=== PATIENT | male | born 1955 | race Caucasian/White ===

== ENCOUNTER → 2023-05-07 | Outpatient (CLI) | payer MEDICARE, OTHER ==
[2023-05-07 09:26] LABS: African American GFR (CKD) >90 (>60 ml/min/1.73 sqM); Blood Urea Nitrogen 19 mg/dL (9-20); Non-African American GFR(CKD) 89 (>60 ml/min/1.73 sqM)
--- NOTE | 2023-05-07 11:34 | CT ---
EXAMINATION TYPE: CT abdomen pelvis w con CT DLP: 582.5 mGycm, Automated exposure control for dose reduction was used. DATE OF EXAM: 05/07/2023 10:18 AM COMPARISON: None CLINICAL INDICATION:Male, 67 years old with history of C61 malignant neoplasm of prostate; Prostate C A TECHNIQUE: Standard CT of the abdomen and pelvis following the administration of 100 cc of Isovue 3 00 IV contrast material and oral contrast. Coronal and sagittal reformats were performed. FINDINGS: LOWER CHEST: Unremarkable ABDOMEN LIVER: Few scattered subcentimeter hypodense foci which are too small to characterize with a right he patic lobe 3.9 cm cyst. GALLBLADDER AND BILE DUCTS: Unremarkable. PANCREAS: Unremarkable. SPLEEN: Unremarkable. ADRENAL GLANDS: Unremarkable. KIDNEYS AND URETERS: No evidence of hydronephrosis or renal calculus. The kidneys enhance symmetrical ly without suspicious lesion. Contrast is demonstrated within both collecting systems on the delayed phase. PELVIS BLADDER: Unremarkable REPRODUCTIVE: Prostate measuring up to 5.3 cm with medial lobe hypertrophy and indentation upon the u rinary bladder base. ABDOMEN & PELVIS STOMACH AND BOWEL: Small hiatal hernia, duodenum is unremarkable. The colonic diverticulosis without evidence for acute diverticulitis. Mild amount of stool present throughout the colon. Enteric contras t reaches the ileocecal junction. No evidence of bowel obstruction. PERITONEUM: No evidence of pneumoperitoneum or free fluid. VASCULATURE: Infrarenal abdominal aortic fusiform aneurysm measuring up to 3.0 cm (series 3, image 33 ). Mild atherosclerotic calcification of the aorta and its branches. Mild eccentric mural thrombus in the aneurysm. MUSCULOSKELETAL: No acute osseous abnormalities. No aggressive osseous lesion. Prominent Schmorl's no de involving the inferior endplate of L1. LYMPH NODES: No evidence for lymphadenopathy. SOFT TISSUE/ABDOMINAL WALL: Small fat filled umbilical hernia. Post surgical changes from right ingui nal hernia repair. IMPRESSION: 1. No CT evidence for metastatic disease. 2. Colonic diverticulosis without evidence for acute diverticulitis. 3. Infrarenal abdominal aortic aneurysm measuring up to 3.0 cm.
--- NOTE | 2023-05-07 14:13 | NM ---
EXAMINATION TYPE: NM bone scan whole body DATE OF EXAM: 05/07/2023 COMPARISON: NONE CLINICAL INDICATION: Male, 67 years old with history of C61 malignant neoplasm of prostate; Delayed whole-body scanning was performed following the injection of 21.5 mCi Tc 99m MDP. Images acq uired 4.5 hours post injection. FINDINGS: Nonspecific uptake involving the sternoclavicular joint bilaterally likely postoperative. Nonspecific uptake bilateral shoulders likely postoperative related. Mild intensity uptake throughout the thoracic and lumbar spine nonspecific but likely degenerative IMPRESSION: No diagnostic evidence of metastasis.
== END | disposition home or self-care (01) ==
LOC: RADCTMAIN 08:24
PROVIDERS: ATTEND Urology
DX: C61 Malignant neoplasm of prostate (principal); K57.30 Diverticulosis of large intestine without perforation or abscess without bleeding; I71.43 Infrarenal abdominal aortic aneurysm, without rupture
CPT/HCPCS: 82565; 84520; 74177; 36415; 78306; A9503; Q9967

== ENCOUNTER → 2023-07-09 | Outpatient (CLI) | payer MEDICARE, OTHER ==
[2023-07-09 16:56] LABS: Basophils # (A) 0.09 X 10*3/uL (0.00-0.10); Basophils % (A) 0.9 %; Eosinophils # (A) 0.18 X 10*3/uL (0.04-0.35); Eosinophils % (A) 1.8 %; HCT 45.8 % (39.6-50.0); Lymphocytes # (A) 2.83 X 10*3/uL (0.90-5.00); Lymphocytes % (A) 27.6 %; MCH 31.8 pg (27.0-32.0); MCHC 32.8 d/dL (32.0-37.0); MCV 97.2 FL (80.0-97.0); Mean Platelet Volume 9.4 FL (9.5-12.2); Monocytes # (A) 1.24 X 10*3/uL (0.20-1.00); Monocytes % (A) 12.1 %; NRBC Per 100 WBC 0 X 10*3/uL (0.00-0.01); Neutrophils % (A) 56.6 %; Platelet Count 277 X 10*3/uL (140-440); RBC 4.71 X 10*6/uL (4.40-5.60); RDW 13.4 % (11.5-14.5); WBC 10.24 X 10*3/uL (4.50-10.00)
[2023-07-09 17:12] LABS: Blood Urea Nitrogen 15.7 mg/dL (9.0-27.0); Calcium 8.5 mg/dL (8.7-10.3); Carbon Dioxide 29.7 mmol/L (21.6-31.8); Chloride 102 mmol/L (96-109); Glucose 87 mg/dL (70-110); Potassium 4.1 mmol/L (3.5-5.5); Sodium 139 mmol/L (135-145)
[2023-07-09 19:32] LABS: Appearance,Urine Clear (Clear); Bilirubin,Urine Negative (Negative); Blood,Urine Negative (Negative); Color,Urine Yellow (Yellow); Ketones,Urine Negative (Negative); Nitrite,Urine Negative (Negative); Specific Gravity,Urine 1.018 (1.001-1.030)
== END | disposition home or self-care (01) ==
LOC: LABPAT 10:05
PROVIDERS: ATTEND Urology
DX: Z01.812 Encounter for preprocedural laboratory examination (principal); C61 Malignant neoplasm of prostate
CPT/HCPCS: 80048; 81003; 85025; 87086

== ENCOUNTER 2023-07-16 10:11 | Day surgery (SDC) | payer MEDICARE, OTHER ==
[2023-07-08 09:48] VITALS: BMI 23.0
--- NOTE | 2023-07-16 07:54 | P.HPIHPCON ---
History of Present Illness H&P Date: 07/16/23 Chief Complaint: Prostate cancer This is a 67-year-old male with history of [place] 7(3+4) prostate cancer. Option of a robotic radical prostatectomy versus radiation therapy was discussed with him in detail. Risk and benefit of each approach was discussed. He agreed to proceed with a robotic radical prostatectomy aware of the risk which includes but not limited to bleeding, infection, urinary incontinence, erectile dysfunction, strictures. Discussed also potential of needing additional treatment, cancer recurrence and need of surveillance post operatively was discussed. Risk of injury to nearby organs which was discussed. Discussed also risks of medical complications. He understood all the risk and agreed to proceed with robotic radical prostatectomy with pelvic lymph node dissection Consent for Procedure: I have explained the operation/procedure to the patient, including the risks, benefits, side effects, alternative therapies (including not receiving the proposed treatment or service), the likelihood of the patient achieving his/her goals, and potential recuperation problems for the procedure/sedation/analgesia, as well as any blood products, if indicated. I also explained to the patient the risks, benefits and side effects of the alternatives, as well as the risks related to not receiving the proposed procedure, care, treatment, or services. Past Medical History Past Medical History: Cancer, Myocardial Infarction (ND), Osteoarthritis (OA) Additional Past Medical History / Comment(s): Recent respiratory infection, finished Steroid and Z-Pack 07/07/23, patient following up with Dr Harris 07/09/23. Current prostate cancer. Was told he had a minor ND about 25 yrs ago, pt didn't know it occured. Last Myocardial Infarction Date:: Unknown History of Any Multi-Drug Resistant Organisms: None Reported Past Surgical History: Back Surgery, Hernia Repair Additional Past Surgical History / Comment(s): Left hand little finger surgery. Lumbar discectomy(2 discs) 25+ yrs ago. Past Anesthesia/Blood Transfusion Reactions: Motion Sickness Past Psychological History: No Psychological Hx Reported Smoking Status: Current every day smoker Past Alcohol Use History: Rare Additional Past Alcohol Use History / Comment(s): Currently smokes 5-6 cigarettes daily, started smoking at age 15, has quit quite a few times over the years. Past Drug Use History: Marijuana Additional Drug Use History / Comment(s): THC gummies occasionally. Aware no use 24 hrs prior to procedure. - Past Family History Daughter(s) Family Medical History: Cancer Additional Family Medical History / Comment(s): Breast cancer. Medications and Allergies Home Medications Medication Instructions Recorded Confirmed Type Aspirin [Adult Low Dose Aspirin EC] 81 mg PO DAILY 07/08/23 07/08/23 History Cetirizine HCl [Zyrtec] 10 mg PO DAILY 07/08/23 07/08/23 History Famotidine/Ca Carb/Mag Hydrox 1 tab PO HS 07/08/23 07/08/23 History [Pepcid Complete Tablet Chew] Simvastatin 40 mg PO DAILY 07/08/23 07/08/23 History carvediloL [Coreg] 3.125 mg PO BID 07/08/23 07/08/23 History Allergies Allergy/AdvReac Type Severity Reaction Status Date / Time No Known Allergies Allergy Verified 07/08/23 09:13 Surgical - Exam - General no distress, no pain - Eyes normal ocular movement, no pale - ENT normal nares, normal mucosa - Respiratory normal expansion, normal respiratory effort - Abdomen Abdomen: soft, non tender Assessment and Plan Assessment: OR for robotic radical prostatectomy with pelvic lymph node dissection
[~2023-07-16 10:11] MED LIST: HEPARIN SODIUM,PORCINE/PF 5,000 UNIT/0.5 ML SYRINGE SQ PRN
[2023-07-16] MEDS: ONDANSETRON 4 MG/2 ML VIAL IVP ONE ×2 (11:30→11:52)
[2023-07-16] MEDS: DEXAMETHASONE SOD PHOSPHATE 4 MG/ML 1 ML VIAL IV ONE ×2 (11:30→11:52)
[2023-07-16] MEDS ORDERED: ONDANSETRON 4 MG/2 ML VIAL IVP PRN (11:37)
[2023-07-16] MEDS ORDERED: MIDAZOLAM 2 MG/2 ML VIAL IVP ONE (11:39)
[2023-07-16] MEDS: LACTATED RINGERS 1,000 ML IV SCH (11:51)
[2023-07-16] MEDS ORDERED: ROCURONIUM 10 MG/ML (5 ML VIAL) IV ONE (12:08)
[2023-07-16] MEDS ORDERED: fentaNYL (PF) 50 MCG/ML 2 ML AMP ONE (12:08)
[2023-07-16] MEDS ORDERED: ROPIVACAINE 5 MG/ML 30 ML VIAL ONE (12:08)
[2023-07-16] MEDS ORDERED: HYDROmorphone (PF) 1 MG/ML ONE (12:08)
[2023-07-16] MEDS ORDERED: SUCCINYLCHOLINE CHLORIDE 200 MG/10 ML VIAL IV ONE (12:08)
[2023-07-16] MEDS ORDERED: NEOSTIGMINE 1 MG/ML 10 ML VIAL ONE (12:08)
[2023-07-16] MEDS ORDERED: PHENYLEPHRINE-0.9% NACL SYG 1,000 MCG/10 ML SYRINGE ONE (12:08)
[2023-07-16] MEDS ORDERED: SODIUM CHLORIDE 0.9% (PF) 10 ML VIAL ONE (12:08)
[2023-07-16] MEDS ORDERED: PROPOFOL 10 MG/ML 20 ML VIAL IV ONE (12:08)
[2023-07-16] MEDS ORDERED: LIDOCAINE 2% INJ 20 MG/ML (2 ML VIAL) ONE (12:08)
[2023-07-16] MEDS ORDERED: GLYCOPYRROLATE 0.2 MG/ML 2 ML VIAL ONE (12:08)
[2023-07-16] MEDS ORDERED: BUPIVACAINE (PF) 0.5% 30 ML VIAL SQ ONE (12:58)
[2023-07-16] MEDS ORDERED: GENTAMICIN 40 MG/ML 2 ML VIAL ONE (13:48)
[2023-07-16] MEDS ORDERED: SODIUM CHLORIDE 0.9% 100 ML BAG ONE (13:48)
--- NOTE | 2023-07-16 15:33 | P.OP ---
Date of Procedure: 07/16/23 Preoperative Diagnosis: Prostate cancer Postoperative Diagnosis: same Procedure(s) Performed: Robotic radical prostatectomy, and left-sided pelvic lymph node dissection Implants: None Anesthesia: THERESEA Surgeon: Alberto Harris Estimated Blood Loss (ml): 150 Pathology: other (Prostate, bilateral seminal vesicle, left pelvic lymph nodes) Condition: stable Disposition: PACU Indications for Procedure: This is a 67-year-old male with history of [place] 7(3+4) prostate cancer. Option of a robotic radical prostatectomy versus radiation therapy was discussed with him in detail. Risk and benefit of each approach was discussed. He agreed to proceed with a robotic radical prostatectomy aware of the risk which includes but not limited to bleeding, infection, urinary incontinence, erectile dysfunction, strictures. Discussed also potential of needing additional treatment, cancer recurrence and need of surveillance post operatively was discussed. Risk of injury to nearby organs which was discussed. Discussed also risks of medical complications. He understood all the risk and agreed to proceed with robotic radical prostatectomy with pelvic lymph node dissection Description of Procedure: After preoperative antibiotics were started, the patient was taken to the operating room. Anesthesia was induced and the patient was placed in a supine position, with adequate padding of the pressure points, shoulders, back, legs and arms. He was then prepped and draped in the standard fashion. A critical pause was performed using two patient identifiers. A 16F edmondson catheter was placed to gravity drainage. A pneumo-peritoneum was created with placement of a Veress needle to 20 mm Hg without complication, and a 8 Fr trocar was placed above the umbillicus. Under direct vision a 8mm robotic ports was placed lateral to each rectus slightly below the camera port. The left iliac fossa 8mm port was placed. The right hospital administrative assistant right iliac fossa 12mm port and right paramedian 5mm portwere placed. After the patient was placed in the trendelenberg position, the robot was then docked to the 8mm robotic ports and then each robotic arm and tower was checked in relation to the patient's legs and hands to avoid inadvertent compression. The peritoneal cavity was inspected. Patient had adhesions along the right lower quadrant which were taken down sharply An inverted U-shaped incision began laterally to the left medial umbilical ligament and extended high across the midline to the right umbilical ligament. The limbs of the "U" extended to the level of the vasa on both sides. We next developed the preperitoneal space and the space of Retzius. Of note patient had scarring of the space of Retzius, as the bladder was adherent to the pubic bone, and along the right side pelvic sidewall. I was able to mobilize the bladder off the pubic bone using cautery. After mobilizing the bladder the bladder was filled with 120 mL which showed no evidence of any bladder leaks. Cautery was used to dissected the bladder away from the prostate. After the anterior bladder neck was incised and the bladder entered the the posterior bladder neck was exposed and the ureteral orifces identified. Of note patient had a significant enlargement of the median lobe with intravesical extension The posterior bladder neck was then incised and dissected away from the prostate. The vas and the seminal vesicles were now exposed and dissected to their insertions into the prostate and were not spared. The posterior layer of the Denonvillier's fascia was incised to enter luis a the plane between prostate and perirectal fat. Each lateral pedicle was controlled with clips and cautery for hemostasis. Complete nerve preservation was performed on the left, partial nerve preservation was performed on the right The puboprostatic ligament was incised where it inserted into the apex of the prostate and a plane between urethra and dorsal venous complex developed to expose the anterior urethral surface. The anterior wall of the urethra was transected with the cut setting a few millimeters distal to the apex of the prostate. The dorsal vein was ligated using 3-0 V lock Patient had mesh covering the iliac vessels on the peritoneal side, I attempted to develop the plane in order to the right sided pelvic lymph node but there was significant scarring, given risk for vascular injury decision was made not to proceed with right-sided pelvic lymph node. left obturator and external iliac lymph node packets were carefully dissected after careful visualization of the hypogastric artery and obturator nerve. There was careful attention paid to hemostasis with judicious use of cautery. The urethrovesical anastomosis was performed . the posterior denovillers was reapproximated using 3-0 V lock. A9 and9 inch 3-0 V-Lock suture was used to anastomose the urethra and bladder, starting at the 6:00 posterior position. Mucosa was secured in every stitch, to ensure a mucosa to mucosa anastomosis. The stitch was regularly cinched and the anastomosis tightened. Care was taken to not violate the ureteral orifices. The Edmondson catheter was advanced, the bladder filled, and the anastomosis was tested, as described above. Anastomsis was watertight at 200 mL The periumbilical fascia was closed with 1-0-PDS suture in figure of eight fashion. All ports were closed with a subcuticular 4-0 monocryl and Dermabond. Sponge, instrument, and needle counts were correct at the end of the case x2. All specimens including prostate and lymph nodes were sent to pathology for diagnosis and will be available in a week. The patient tolerated the surgery well and without complication. He awoke without difficulty and was taken to the recovery room in stable condition .
[2023-07-16] MEDS ORDERED: LACTATED RINGERS 1,000 ML IV ONE (15:44)
[2023-07-16] MEDS: D5-0.45% NACL WITH KCL 20MEQ/L 1,000 ML IV SCH (18:29)
[2023-07-16] MEDS: KETOROLAC 15 MG/ML 1 ML VIAL IVP SCH ×2 (18:47→22:54)
[2023-07-16] MEDS: carvediloL 3.125 MG TAB PO SCH (18:48)
[2023-07-16] MEDS: HEPARIN SODIUM,PORCINE 5,000 UNIT/ML 1 ML VIAL SQ SCH (20:24)
[2023-07-16] MEDS ORDERED: FAMOTIDINE 20 MG TAB PO SCH (21:00)
[2023-07-17] MEDS: HYDROmorphone 1 MG/ML 1 ML SYRINGE IVP PRN ×2 (00:23→07:50)
[2023-07-17] MEDS: D5-0.45% NACL WITH KCL 20MEQ/L 1,000 ML IV SCH ×2 (00:24→09:31)
[2023-07-17] MEDS: HEPARIN SODIUM,PORCINE 5,000 UNIT/ML 1 ML VIAL SQ SCH ×2 (05:33→12:01)
[2023-07-17] MEDS: KETOROLAC 15 MG/ML 1 ML VIAL IVP SCH ×2 (06:14→12:01)
[2023-07-17] MEDS: LACTATED RINGERS 1,000 ML IV SCH (06:16)
[2023-07-17 07:43] VITALS: BP 96/55; PULSE 63; TEMP 98.3
[2023-07-17] MEDS: carvediloL 3.125 MG TAB PO SCH (08:40)
[2023-07-17] MEDS ORDERED: LORATADINE 10 MG TAB PO SCH (09:00)
[2023-07-17] MEDS ORDERED: ATORVASTATIN 20 MG TAB PO SCH (09:00)
[2023-07-17 10:52] VITALS: RESP 20
--- NOTE | 2023-07-17 11:49 | P.DS ---
Providers Attending physician: Alberto Harris MD Primary care physician: Stated None Hospital Course: This is a 67 yo male with hx of karen 7 (3+4) prostate cancer underwent robotic prostatecomy on 07/16. Please see op note dated 07/16 for surgery details. He was admitted to the hospital post operatively. He was discharged home on POD #1. at time of discharge he was tolerating diet, ambulating and pain was controlled. Plan - Discharge Summary Discharge Rx Participant: Yes New Discharge Prescriptions: New Ciprofloxacin HCl [Cipro] 250 mg PO Q12HR #6 tablet HYDROcodone/APAP 5-325MG [[place] 5-325] 1 tab PO Q6HR PRN 3 Days #6 tab PRN Reason: Pain Ketorolac [Toradol] 10 mg PO Q6HR PRN #15 tab PRN Reason: Pain No Action Simvastatin 40 mg PO DAILY Aspirin [Adult Low Dose Aspirin EC] 81 mg PO DAILY Cetirizine HCl [Zyrtec] 10 mg PO DAILY carvediloL [Coreg] 3.125 mg PO BID Famotidine/Ca Carb/Mag Hydrox [Pepcid Complete Tablet Chew] 1 tab PO HS Discharge Medication List Aspirin [Adult Low Dose Aspirin EC] 81 mg PO DAILY 07/08/23 [History] Cetirizine HCl [Zyrtec] 10 mg PO DAILY 07/08/23 [History] Famotidine/Ca Carb/Mag Hydrox [Pepcid Complete Tablet Chew] 1 tab PO HS 07/08/23 [History] Simvastatin 40 mg PO DAILY 07/08/23 [History] carvediloL [Coreg] 3.125 mg PO BID 07/08/23 [History] Ciprofloxacin HCl [Cipro] 250 mg PO Q12HR #6 tablet 07/17/23 [Rx] HYDROcodone/APAP 5-325MG [[place] 5-325] 1 tab PO Q6HR PRN 3 Days #6 tab 07/17/23 [Rx] Ketorolac [Toradol] 10 mg PO Q6HR PRN #15 tab 07/17/23 [Rx] Activity/Diet/Wound Care/Special Instructions: Increase fluid intake No heavy lifting or straining You may shower, no baths
== END 2023-07-17 14:25 | disposition home or self-care (01) ==
LOC: OR 10:11 → 4SSUR 15:35 → OR 07-17 14:25
PROVIDERS: ATTEND Urology
DX: C61 Malignant neoplasm of prostate (principal); I25.2 Old myocardial infarction; M19.90 Unspecified osteoarthritis, unspecified site; F17.210 Nicotine dependence, cigarettes, uncomplicated; F12.90 Cannabis use, unspecified, uncomplicated; Z80.3 Family history of malignant neoplasm of breast; Z98.890 Other specified postprocedural states; Z79.899 Other long term (current) drug therapy; Z79.82 Long term (current) use of aspirin
CPT/HCPCS: 64488; 86900; 86901; 86850; 55866; 38570; J2250; J0330; J1580; J1644 ×2; J1100; J2710; J0690; J2405; J3010; J1170 ×2; J2795; J1885 ×2; J2704; J2001; J2371; J0665

== ENCOUNTER 2023-07-18 05:30 | Inpatient (IN) | payer MEDICARE, OTHER ==
[2023-07-18] MEDS ORDERED: SODIUM CHLORIDE 0.9% 1,000 ML IV STA (06:14)
[2023-07-18] MEDS ORDERED: PANTOPRAZOLE 40 MG/10 ML VIAL IVP STA (06:14)
[2023-07-18] MEDS ORDERED: ONDANSETRON 4 MG/2 ML VIAL IVP STA (06:14)
[2023-07-18] MEDS ORDERED: MORPHINE SULFATE 2 MG/ML SYRINGE IVP STA (06:15)
[2023-07-18 06:23] LABS: Basophils % (A) 0 %; Eosinophils # (A) 0.1 k/uL (0-0.7); Eosinophils % (A) 1 %; HCT 43.4 % (39.0-53.0); HGB 14.8 gm/dL (13.0-17.5); Lymphocytes # (A) 1.4 k/uL (1.0-4.8); Lymphocytes % (A) 9 %; MCH 32.3 pg (25.0-35.0); MCHC 34.2 g/dL (31.0-37.0); MCV 94.4 fL (80.0-100.0); Mean Platelet Volume 7.6; Monocytes % (A) 6 %; Neutrophils # (A) 13.9 k/uL (1.3-7.7); Neutrophils % (A) 84 %; Platelet Count 289 k/uL (150-450); RDW 12.5 % (11.5-15.5); WBC 16.5 k/uL (3.8-10.6)
--- NOTE | 2023-07-18 06:23 | ED ---
Nausea/Vomiting/Diarrhea HPI - General Chief complaint: Nausea/Vomiting/Diarrhea Stated complaint: Vomiting blood, post op complications Time Seen by Provider: 07/18/23 05:59 Source: patient, RN notes reviewed Mode of arrival: wheelchair Limitations: no limitations - History of Present Illness Initial comments: This is a 67-year-old male who presents to the emergency department for abdominal pain, nausea, and vomiting. Patient had a total robotic prostatectomy for prostate cancer with Dr. Harris 2 days ago. He was discharged from the hospital here yesterday. States that since being home, he has had increasing pain in the abdomen, and back, and has also started vomiting, which at times seemed to contain blood. He had thrown up a couple of times before noticing the blood in his vomit. States that it was essentially just streaking of bright red blood. He is not taking any blood thinners. Denies any fevers, chills, sore throat, cough, dyspnea, chest pain, palpitations, diarrhea, or headaches. MD complaint: nausea, vomiting - Related Data Home Medications Medication Instructions Recorded Confirmed Aspirin [Adult Low Dose Aspirin EC] 81 mg PO DAILY 07/08/23 07/18/23 Cetirizine HCl [Zyrtec] 10 mg PO DAILY 07/08/23 07/18/23 Famotidine/Ca Carb/Mag Hydrox 1 tab PO HS 07/08/23 07/18/23 [Pepcid Complete Tablet Chew] Simvastatin 40 mg PO DAILY 07/08/23 07/18/23 carvediloL [Coreg] 3.125 mg PO BID 07/08/23 07/18/23 Previous Rx's Medication Instructions Recorded Ciprofloxacin HCl [Cipro] 250 mg PO Q12HR #6 tablet 07/17/23 HYDROcodone/APAP 5-325MG [[place] 1 tab PO Q6HR PRN 3 Days #6 tab 07/17/23 5-325] Ketorolac [Toradol] 10 mg PO Q6HR PRN #15 tab 07/17/23 Allergies Allergy/AdvReac Type Severity Reaction Status Date / Time No Known Allergies Allergy Verified 07/16/23 10:42 Review of Systems ROS Statement: Those systems with pertinent positive or pertinent negative responses have been documented in the HPI. ROS Other: All systems not noted in ROS Statement are negative. Past Medical History Past Medical History: Cancer, Myocardial Infarction ([place]), Osteoarthritis (OA), Prostate Disorder Additional Past Medical History / Comment(s): Recent respiratory infection, finished Steroid and Z-Pack 07/07/23, patient following up with Dr Harris 07/09/23. Current prostate cancer. Was told he had a minor [place] about 25 yrs ago, pt didn't know it occured. Last Myocardial Infarction Date:: Unknown History of Any Multi-Drug Resistant Organisms: None Reported Past Surgical History: Back Surgery, Hernia Repair Additional Past Surgical History / Comment(s): Left hand little finger surgery. Lumbar discectomy(2 discs) 25+ yrs ago. Past Anesthesia/Blood Transfusion Reactions: Motion Sickness Past Psychological History: No Psychological Hx Reported Smoking Status: Current every day smoker Past Alcohol Use History: Rare Past Drug Use History: Marijuana - Past Family History Daughter(s) Family Medical History: Cancer Additional Family Medical History / Comment(s): Breast cancer. General Exam Limitations: no limitations General appearance: alert, in no apparent distress Head exam: Present: atraumatic, normocephalic, normal inspection Respiratory exam: Present: normal lung sounds bilaterally. Absent: respiratory distress, wheezes, rales, rhonchi, stridor Cardiovascular Exam: Present: regular rate, normal rhythm, normal heart sounds. Absent: systolic murmur, diastolic murmur, rubs, gallop, clicks GI/Abdominal exam: Present: soft, normal bowel sounds, other (Operative incisions are intact. No surrounding erythema, drainage, or heat.). Absent: distended Neurological exam: Present: alert, oriented X3, CN II-XII intact Psychiatric exam: Present: normal affect, normal mood Skin exam: Present: warm, dry, intact, normal color. Absent: rash Course Vital Signs 07/18/23 07/18/23 07/18/23 05:32 07:00 07:27 Temperature 98.6 F Pulse Rate 81 110 H 120 H Pulse Rate [ Skate Hop ] Respiratory 16 18 20 Rate Blood Pressure 152/85 143/93 132/91 O2 Sat by Pulse 96 97 92 L Oximetry 07/18/23 07/18/23 07:32 08:00 Temperature Pulse Rate 104 H Pulse Rate [ 110 H Skate Hop ] Respiratory 20 Rate Blood Pressure 132/90 O2 Sat by Pulse 97 Oximetry Medical Decision Making - Medical Decision Making This is a 67-year-old male who presents to the emergency department for abdominal pain, nausea, vomiting. Was pt. sent in by a medical professional or institution? @ -No Did you speak to anyone other than the patient for history? @ -No Did you review nursing and triage notes? @ -Yes, and I agree, it is accurate with regards to the patient's symptoms. Were old charts reviewed? @ -No Differential Diagnosis? @ -Differential Abdominal Pain Men: Appendicitis, cholecystitis, diverticulosis, ischemic bowel, pancreatitis, hepatitis, UTI, gastroenteritis, AAA, incarcerated hernia, bowel obstruction, constipation, inflammatory bowel, hepatitis, peptic ulcer disease, splenic infarction, perforated viscus, testicular torsion, this is not meant to be an all-inclusive list EKG interpreted by me (3pts min.)? @ -EKG interpreted by me revealing the following: Atrial fibrillation with rapid ventricular response. Ventricular rate 101 bpm, QRS duration 91 ms, QTC 382 ms. X-rays interpreted by me (1pt min.)? @ -Not obtained CT interpreted by me (1pt min.)? @ -Computed tomography scan of the abdomen and pelvis obtained. My interpretation identifies no evidence of bowel wall thickening. U/S interpreted by me (1pt. min.)? @ -Not obtained What testing was considered but not performed? (CT, X-rays, U/S, labs)? Why? @ -None What meds were considered but not given? Why? @ -None Did you discuss the management of the patient with other professionals? @ -Yes, Dr. Mlelo, who accepts the patient for admission. Did you reconcile home meds? @ -No Was smoking cessation discussed for >3mins.? @ -No Was critical care preformed (if so, how long)? @ -No Were there social determinants of health that impacted care today? How? (Homelessness, low income, unemployed, alcoholism, drug addiction, transportation, low edu. Level, literacy, decrease access to med. care, correction, rehab)? @ -No Was there de-escalation of care discussed even if they declined? (Discuss DNR or withdrawal of care, Hospice)? @ -No What co-morbidities impacted this encounter? (DM, HTN, Smoking, COPD, CAD, Cancer, CVA, Hep., AIDS, mental health diagnosis, sleep apnea, morbid obesity)? @ -Prostate cancer Was patient admitted / discharged? @ -Admitted. Lab work obtained revealing leukocytosis, and was otherwise nonactionable. Computed tomography scan of the abdomen and pelvis obtained revealing expected postsurgical changes, including moderate pneumoperitoneum, pneumomediastinum, and subcutaneous emphysema. After being given Zofran, the patient did not experience any episodes of emesis while in the emergency de partment. He was given a dose of Protonix due to concerns of blood streaking in the vomit. When the patient was hooked up to the monitor, his nurse noticed that his heart rate was fluctuating from the 80s to the 120s, and subsequently obtained an EKG revealing atrial fibrillation with RVR. Patient has no history of atrial fibrillation or other cardiac problems. Not taking any blood thinners. We avoided starting the patient on blood thinners at this time, as he is in the acute postoperative phase and had reported some blood in his vomit. Patient admitted to medicine for new onset atrial fibrillation and postoperative pain. Consults placed for cardiology and urology. Undiagnosed new problem with uncertain prognosis? @ -None Drug Therapy requiring intensive monitoring for toxicity (Heparin, Nitro, Insulin, Cardizem)? @ -None Were any procedures done? @ -None Diagnosis/symptom? @ -A-fib with RVR, postoperative pain Acute, or Chronic, or Acute on Chronic? @ -Acute Uncomplicated (without systemic symptoms) or Complicated (systemic symptoms)? @ -Complicated Side effects of treatment? @ -None Exacerbation, Progression, or Severe Exacerbation] @ -Not applicable Poses a threat to life or bodily function? @ -Yes This case was discussed in detail with the attending ED physician, Dr. Craven. Presentation, findings, and treatment plan discussed in detail as well. - Lab Data Result diagrams: 07/18/23 06:10 07/18/23 06:10 Lab Results 07/18/23 07/18/23 07/18/23 Range/Units 06:10 06:10 06:10 WBC 16.5 H (3.8-10.6) k/uL RBC 4.60 (4.30-5.90) m/uL Hgb 14.8 (13.0-17.5) gm/dL Hct 43.4 (39.0-53.0) % MCV 94.4 (80.0-100.0) fL MCH 32.3 (25.0-35.0) pg MCHC 34.2 (31.0-37.0) g/dL RDW 12.5 (11.5-15.5) % Plt Count 289 (150-450) k/uL MPV 7.6 Neutrophils % 84 % Lymphocytes % 9 % Monocytes % 6 % Eosinophils % 1 % Basophils % 0 % Neutrophils # 13.9 H (1.3-7.7) k/uL Lymphocytes # 1.4 (1.0-4.8) k/uL Monocytes # 1.0 (0-1.0) k/uL Eosinophils # 0.1 (0-0.7) k/uL Basophils # 0.0 (0-0.2) k/uL PT 10.2 (9.0-12.0) sec INR 1.0 (<1.2) APTT 25.8 (22.0-30.0) sec Sodium 134 L (137-145) mmol/L Potassium 3.9 (3.5-5.1) mmol/L Chloride 100 (98-107) mmol/L Carbon Dioxide 27 (22-30) mmol/L Anion Gap 7 mmol/L BUN 15 (9-20) mg/dL Creatinine 0.80 (0.66-1.25) mg/dL Est GFR (CKD-EPI)AfAm >90 (>60 ml/min/1.73 sqM) Est GFR (CKD-EPI)NonAf >90 (>60 ml/min/1.73 sqM) Glucose 128 H (74-99) mg/dL Plasma Lactic Acid Alonzo (0.7-2.0) mmol/L Calcium 8.3 L (8.4-10.2) mg/dL Total Bilirubin 1.0 (0.2-1.3) mg/dL AST 31 (17-59) U/L ALT 29 (4-49) U/L Alkaline Phosphatase 107 (38-126) U/L Troponin I (0.000-0.034) ng/mL Total Protein 6.9 (6.3-8.2) g/dL Albumin 3.6 (3.5-5.0) g/dL 07/18/23 07/18/23 Range/Units 06:10 06:10 WBC (3.8-10.6) k/uL RBC (4.30-5.90) m/uL Hgb (13.0-17.5) gm/dL Hct (39.0-53.0) % MCV (80.0-100.0) fL MCH (25.0-35.0) pg MCHC (31.0-37.0) g/dL RDW (11.5-15.5) % Plt Count (150-450) k/uL MPV Neutrophils % % Lymphocytes % % Monocytes % % Eosinophils % % Basophils % % Neutrophils # (1.3-7.7) k/uL Lymphocytes # (1.0-4.8) k/uL Monocytes # (0-1.0) k/uL Eosinophils # (0-0.7) k/uL Basophils # (0-0.2) k/uL PT (9.0-12.0) sec INR (<1.2) APTT (22.0-30.0) sec Sodium (137-145) mmol/L Potassium (3.5-5.1) mmol/L Chloride (98-107) mmol/L Carbon Dioxide (22-30) mmol/L Anion Gap mmol/L BUN (9-20) mg/dL Creatinine (0.66-1.25) mg/dL Est GFR (CKD-EPI)AfAm (>60 ml/min/1.73 sqM) Est GFR (CKD-EPI)NonAf (>60 ml/min/1.73 sqM) Glucose (74-99) mg/dL Plasma Lactic Acid Alonzo 1.4 (0.7-2.0) mmol/L Calcium (8.4-10.2) mg/dL Total Bilirubin (0.2-1.3) mg/dL AST (17-59) U/L ALT (4-49) U/L Alkaline Phosphatase (38-126) U/L Troponin I <0.012 (0.000-0.034) ng/mL Total Protein (6.3-8.2) g/dL Albumin (3.5-5.0) g/dL - Radiology Data Radiology results: report reviewed, image reviewed Disposition Clinical Impression: New onset atrial fibrillation, Postoperative pain Disposition: ADMITTED IP TO THIS HOSP
[2023-07-18 06:36] LABS: Partial Thromboplastin Time 25.8 sec (22.0-30.0); Prothrombin Time 10.2 sec (9.0-12.0)
[2023-07-18 06:40] LABS: ALT 29 U/L (4-49); AST 31 U/L (17-59); African American GFR (CKD) >90 (>60 ml/min/1.73 sqM); Albumin 3.6 g/dL (3.5-5.0); Alkaline Phosphatase 107 U/L (38-126); Anion Gap 7 mmol/L; Blood Urea Nitrogen 15 mg/dL (9-20); Calcium 8.3 mg/dL (8.4-10.2); Carbon Dioxide 27 mmol/L (22-30); Chloride 100 mmol/L (98-107); Glucose 128 mg/dL (74-99); Non-African American GFR(CKD) >90 (>60 ml/min/1.73 sqM); Potassium 3.9 mmol/L (3.5-5.1); Sodium 134 mmol/L (137-145); Total Protein 6.9 g/dL (6.3-8.2)
--- NOTE | 2023-07-18 07:14 | CT ---
EXAMINATION TYPE: CT abdomen pelvis w con CT DLP: 850.6 mGycm, Automated exposure control for dose reduction was used. DATE OF EXAM: 07/18/2023 7:03 AM COMPARISON: CT abdomen pelvis most recent from 05/07/2023. CLINICAL INDICATION:Male, 67 years old with history of Postoperative abdominal pain; Post prostatecto my x2 days ago. Abdominal pain and vomiting. TECHNIQUE: Standard CT of the abdomen and pelvis following the administration of 100 cc of Isovue 3 00 IV contrast material. Coronal and sagittal reformats were performed. FINDINGS: LOWER CHEST: Bibasilar subsegmental atelectasis. Pneumomediastinum. ABDOMEN LIVER: Right hepatic lobe cyst measuring 3.3 cm. Additional subcentimeter hyperdense foci within the liver which are too small characterize but likely represent cysts. GALLBLADDER AND BILE DUCTS: Unremarkable. PANCREAS: Unremarkable. SPLEEN: Unremarkable. ADRENAL GLANDS: Unremarkable. KIDNEYS AND URETERS: No evidence of hydronephrosis or renal calculus. The kidneys enhance symmetrical ly. Contrast is demonstrated within both collecting systems on the delayed phase. PELVIS BLADDER: Decompressed bladder Coombs catheter placement of gas likely from catheter placement. REPRODUCTIVE: Postsurgical changes from prostatectomy with surrounding inflammatory changes. Trace fr ee fluid in the pelvis. Small hematoma anterior to the urinary bladder. Presacral edema. ABDOMEN & PELVIS STOMACH AND BOWEL: Small hiatal hernia, duodenum is unremarkable. distal colonic diverticulosis witho ut evidence for acute diverticulitis. Gaseous distention of the transverse colon. No pneumatosis. No evidence of bowel obstruction. PERITONEUM: Mild/moderate pneumoperitoneum. VASCULATURE: Mild to moderate atherosclerotic calcifications are present throughout the abdominal aor ta and its branches. Infrarenal abdominal aortic aneurysm measuring up to 3.0 cm (series 201, image 4 3) MUSCULOSKELETAL: No acute osseous abnormalities LYMPH NODES: No gross evidence for lymphadenopathy. SOFT TISSUE/ABDOMINAL WALL: Diffuse emphysema throughout the soft tissues. Post surgical changes ante rior abdominal wall without organized fluid collection. IMPRESSION: 1. Postsurgical changes from prostatectomy with trace fluid in the pelvis and a small hematoma anter ior to the urinary bladder. Moderate pneumoperitoneum with pneumomediastinum and subcutaneous emphyse ma identified which is likely attributable to recent surgery. Correlate clinically. 2. Infrarenal abdominal aortic aneurysm measuring up to 3.0 cm. 3. Colonic diverticulosis without evidence for acute diverticulitis.
[2023-07-18] MEDS ORDERED: LIDOCAINE 5% PATCH TOPICAL ONE (08:55)
[2023-07-18] MEDS ORDERED: HYDROmorphone 1 MG/ML 1 ML SYRINGE IVP STA (08:55)
[2023-07-18] MEDS ORDERED: NALOXONE 0.4 MG/ML 1 ML VIAL IV PRN (09:11)
[2023-07-18] MEDS ORDERED: HYDROmorphone 0.5 MG/0.5 ML SYRINGE IVP PRN (09:11)
[2023-07-18] MEDS ORDERED: ONDANSETRON 4 MG/2 ML VIAL IVP PRN (09:11)
[2023-07-18] MEDS ORDERED: ACETAMINOPHEN TAB 325 MG TAB PO PRN (09:11)
[2023-07-18] MEDS: SODIUM CHLORIDE 0.9% 1,000 ML IV SCH ×2 (10:19→23:04)
[2023-07-18] MEDS: HYDROmorphone 1 MG/ML 1 ML SYRINGE IVP PRN ×3 (12:30→23:03)
[2023-07-18] MEDS ORDERED: ETODOLAC 400 MG TAB PO PRN (13:20)
[2023-07-18] MEDS ORDERED: HYDROcodone/APAP 5-325MG 1 EACH TAB PO PRN ×2 (13:20→13:29)
--- NOTE | 2023-07-18 13:21 | P.GSCN ---
History of Present Illness Consult date: 07/18/23 History of present illness: The patient underwent a robotic-assisted radical prostatectomy 48 hours ago by . He was discharged home yesterday doing relatively well but in the evening he started having nausea vomiting throughout the fair amount. He became significant amount that he came to the hospital. He is admitted for IV fluids and further assessment. He had a CAT scan that showed nothing other than small amount of postoperative blood. There is subcutaneous air as expected after laparoscopy. He last vomited about 11:00. He has had an IV fluids. He feels better. He is having some mild abdominal discomfort. He does have a history of some motion sickness. Review of Systems All systems: negative - Constitutional Denies fever, Denies weight loss - EENT Eyes: denies blurred vision Ears, nose, mouth and throat: Denies dysphagia - Cardiovascular Denies chest pain, Denies shortness of breath - Respiratory Denies cough, Denies 7 - Gastrointestinal Reports as per HPI - Genitourinary Denies dysuria, Denies hematuria - Integumentary Denies rash, Denies unusual bruising - Neurological Denies headaches, Denies syncope - Hematologic/Lymphatic Denies easy bleeding, Denies easy bruising Past Medical History Past Medical History: Cancer, Myocardial Infarction ([place]), Osteoarthritis (OA), Prostate Disorder Additional Past Medical History / Comment(s): Recent respiratory infection, finished Steroid and Z-Pack 07/07/23, patient following up with Dr Harris 07/09/23. Current prostate cancer. Was told he had a minor [place] about 25 yrs ago, pt didn't know it occured. Last Myocardial Infarction Date:: Unknown History of Any Multi-Drug Resistant Organisms: None Reported Past Surgical History: Back Surgery, Hernia Repair Additional Past Surgical History / Comment(s): Left hand little finger surgery. Lumbar discectomy(2 discs) 25+ yrs ago. Past Anesthesia/Blood Transfusion Reactions: Motion Sickness Past Psychological History: No Psychological Hx Reported Smoking Status: Current every day smoker Past Alcohol Use History: Rare Past Drug Use History: Marijuana - Past Family History Daughter(s) Family Medical History: Cancer Additional Family Medical History / Comment(s): Breast cancer. Medications and Allergies Home Medications Medication Instructions Recorded Confirmed Type Aspirin [Adult Low Dose Aspirin EC] 81 mg PO DAILY 07/08/23 07/18/23 History Cetirizine HCl [Zyrtec] 10 mg PO DAILY 07/08/23 07/18/23 History Famotidine/Ca Carb/Mag Hydrox 1 tab PO HS 07/08/23 07/18/23 History [Pepcid Complete Tablet Chew] Simvastatin 40 mg PO DAILY 07/08/23 07/18/23 History carvediloL [Coreg] 3.125 mg PO BID 07/08/23 07/18/23 History Ciprofloxacin HCl [Cipro] 250 mg PO Q12HR #6 tablet 07/17/23 07/18/23 Rx HYDROcodone/APAP 5-325MG [[place] 1 tab PO Q6HR PRN 3 Days #6 tab 07/17/23 07/18/23 Rx 5-325] Ketorolac [Toradol] 10 mg PO Q6HR PRN #15 tab 07/17/23 07/18/23 Rx Allergies Allergy/AdvReac Type Severity Reaction Status Date / Time No Known Allergies Allergy Verified 07/16/23 10:42 Surgical - Exam Vital Signs Temp Pulse Resp BP Pulse Ox 98.6 F 81 16 152/85 96 07/18/23 05:32 07/18/23 05:32 07/18/23 05:32 07/18/23 05:32 07/18/23 05:32 - General well developed, well nourished, no distress - Eyes normal ocular movement, no icteric - ENT no hearing loss, no congestion - Neck no masses, trachea midline - Respiratory normal respiratory effort, clear to auscultation - Abdomen Mild distention consistent with a mild ileus Abdomen: soft, non tender, no guarding, no rigid, no rebound - Genitourinary Indwelling catheter with clear urine - Integumentary no rash, no abnormal pigmentation - Neurologic no disoriented, no combative - Psychiatric oriented to time, oriented to person, oriented to place, speech is normal, memory intact Results - Labs 07/18/23 06:10 07/18/23 06:10 Abnormal Lab Results - Last 24 Hours (Table) 07/18/23 07/18/23 Range/Units 06:10 06:10 WBC 16.5 H (3.8-10.6) k/uL Neutrophils # 13.9 H (1.3-7.7) k/uL Sodium 134 L (137-145) mmol/L Glucose 128 H (74-99) mg/dL Calcium 8.3 L (8.4-10.2) mg/dL Diabetes panel 07/18/23 Range/Units 06:10 Sodium 134 L (137-145) mmol/L Potassium 3.9 (3.5-5.1) mmol/L Chloride 100 (98-107) mmol/L Carbon Dioxide 27 (22-30) mmol/L BUN 15 (9-20) mg/dL Creatinine 0.80 (0.66-1.25) mg/dL Glucose 128 H (74-99) mg/dL Calcium 8.3 L (8.4-10.2) mg/dL AST 31 (17-59) U/L ALT 29 (4-49) U/L Alkaline Phosphatase 107 (38-126) U/L Total Protein 6.9 (6.3-8.2) g/dL Albumin 3.6 (3.5-5.0) g/dL Calcium panel 07/18/23 Range/Units 06:10 Calcium 8.3 L (8.4-10.2) mg/dL Albumin 3.6 (3.5-5.0) g/dL Pituitary panel 07/18/23 Range/Units 06:10 Sodium 134 L (137-145) mmol/L Potassium 3.9 (3.5-5.1) mmol/L Chloride 100 (98-107) mmol/L Carbon Dioxide 27 (22-30) mmol/L BUN 15 (9-20) mg/dL Creatinine 0.80 (0.66-1.25) mg/dL Glucose 128 H (74-99) mg/dL Calcium 8.3 L (8.4-10.2) mg/dL Adrenal panel 07/18/23 Range/Units 06:10 Sodium 134 L (137-145) mmol/L Potassium 3.9 (3.5-5.1) mmol/L Chloride 100 (98-107) mmol/L Carbon Dioxide 27 (22-30) mmol/L BUN 15 (9-20) mg/dL Creatinine 0.80 (0.66-1.25) mg/dL Glucose 128 H (74-99) mg/dL Calcium 8.3 L (8.4-10.2) mg/dL Total Bilirubin 1.0 (0.2-1.3) mg/dL AST 31 (17-59) U/L ALT 29 (4-49) U/L Alkaline Phosphatase 107 (38-126) U/L Total Protein 6.9 (6.3-8.2) g/dL Albumin 3.6 (3.5-5.0) g/dL - Imaging CT scan - abdomen: report reviewed, image reviewed CT scan - pelvis: report reviewed, image reviewed Assessment and Plan Assessment: Impression: Postoperative ileus with secondary nausea and vomiting. Recommendations: The patient should not have any significant fluids over the next couple of hours. At that point in time if he is not nauseated he can start drinking some fluids. He should be supported with pain medicine and antibiotics. He should be encouraged to ambulate. I would continue with IV fluids. I will follow.
--- NOTE | 2023-07-18 13:36 | P.HPIM ---
History of Present Illness H&P Date: 07/18/23 History of present illness; patient is a 67-year-old gentleman with past medical history significant for hypertension, hyperlipidemia, recent laparoscopic prostatectomy who presented to the ER for abdominal pain and nausea and vomiting. Patient underwent robotic-assisted radical prostatectomy 2 days ago by . Patient was discharged yesterday in stable condition. Patient stated he was all right when last night he started experiencing abdominal pain is generalized associated with nausea and vomiting. Patient stated that the vomitus was coffee-ground in color and it burnt like acid.. There was no complain of any diarrhea or any blood in the stools. Patient continued to have these complaints for the night and decided to come to the ER. Initial lab work done in the ER showed WBC 16.5, hemoglobin 14.8, platelet count 289, sodium 134, potassium 3.9, BUN 15, creatinine 0.8 CT abdominal and pelvis done showed postsurgical changes from prostatectomy trace fluid in the pelvis and a small hematoma anterior to the urinary bladder, moderate pneumoperitoneum with pneumomediastinum and subcu emphysema. Infrarenal abdominal aortic aneurysm up to 3 cm in size EKG done showed ventricular rate 101, QRS 91, no ST segment elevation, no T-wave inversion, . P waves are noticeable in some leads patient was admitted to medicine service REVIEW OF SYSTEMS: CONSTITUTIONAL: No fever, no malaise, no fatigue. HEENT: No recent visual problems or hearing problems. Denied any sore throat. CARDIOVASCULAR: No chest pain, orthopnea, PND, no palpitations, no syncope. PULMONARY: No shortness of breath, no cough, no hemoptysis. GASTROINTESTINAL: as mentioned in HPI NEUROLOGICAL: No headaches, no weakness, no numbness. HEMATOLOGICAL: Denies any bleeding or petechiae. GENITOURINARY: Denies any burning micturition, frequency, or urgency. MUSCULOSKELETAL/RHEUMATOLOGICAL: Denies any joint pain, swelling, or any muscle pain. ENDOCRINE: Denies any polyuria or polydipsia. The rest of the 14-point review of systems is negative. PHYSICAL EXAMINATION: GENERAL: The patient is alert and oriented x3, not in any acute distress. Well developed, well nourished. HEENT: Pupils are round and equally reacting to light. EOMI. No scleral icterus. No conjunctival pallor. Normocephalic, atraumatic. No pharyngeal erythema. No thyromegaly. CARDIOVASCULAR: S1 and S2 present. No murmurs, rubs, or gallops. PULMONARY: Chest is clear to auscultation, no wheezing or crackles. ABDOMEN: Soft, nontender, laparoscopic surgical incision seen, bowel sounds audible MUSCULOSKELETAL: No joint swelling or deformity. EXTREMITIES: No cyanosis, clubbing, or pedal edema. NEUROLOGICAL: Gross neurological examination did not reveal any focal deficits. SKIN: No rashes. Assessment and plan coffee-ground emesis Abdominal pain Post operative ileus arrhythmia Recent robotic-assisted radical prostatectomy Monitor vital signs Monitor CBC Monitor CMP Continue telemetry monitoring Continue IV fluids Continue IV Protonix 40 twice a day Consults urology Consult surgery for coffee-ground emesis Consult cardiology for arrhythmia Labs and medication were reviewed.. Continue same treatment. Continue with symptomatic treatment. Resume home medication. Monitor labs and vitals. DVT and GI prophylaxis. Further recommendations as per clinical course of the patient Dictation was produced using [email or web address] dictation software. please excuse any grammatical, word or spelling errors. Past Medical History Past Medical History: Cancer, Myocardial Infarction ([place]), Osteoarthritis ([place]), Prostate Disorder Additional Past Medical History / Comment(s): Recent respiratory infection, finished Steroid and Z-Pack 07/07/23, patient following up with Dr Harris 07/09/23. Current prostate cancer. Was told he had a minor [place] about 25 yrs ago, pt didn't know it occured. Last Myocardial Infarction Date:: Unknown History of Any Multi-Drug Resistant Organisms: None Reported Past Surgical History: Back Surgery, Hernia Repair Additional Past Surgical History / Comment(s): Left hand little finger surgery. Lumbar discectomy(2 discs) 25+ yrs ago. Past Anesthesia/Blood Transfusion Reactions: Motion Sickness Past Psychological History: No Psychological Hx Reported Smoking Status: Current every day smoker Past Alcohol Use History: Rare Past Drug Use History: Marijuana - Past Family History Daughter(s) Family Medical History: Cancer Additional Family Medical History / Comment(s): Breast cancer. Medications and Allergies Home Medications Medication Instructions Recorded Confirmed Type Aspirin [Adult Low Dose Aspirin EC] 81 mg PO DAILY 07/08/23 07/18/23 History Cetirizine HCl [Zyrtec] 10 mg PO DAILY 07/08/23 07/18/23 History Famotidine/Ca Carb/Mag Hydrox 1 tab PO HS 07/08/23 07/18/23 History [Pepcid Complete Tablet Chew] Simvastatin 40 mg PO DAILY 07/08/23 07/18/23 History carvediloL [Coreg] 3.125 mg PO BID 07/08/23 07/18/23 History Ciprofloxacin HCl [Cipro] 250 mg PO Q12HR #6 tablet 07/17/23 07/18/23 Rx HYDROcodone/APAP 5-325MG [[place] 1 tab PO Q6HR PRN 3 Days #6 tab 07/17/23 07/18/23 Rx 5-325] Ketorolac [Toradol] 10 mg PO Q6HR PRN #15 tab 07/17/23 07/18/23 Rx Allergies Allergy/AdvReac Type Severity Reaction Status Date / Time No Known Allergies Allergy Verified 07/16/23 10:42 Physical Exam Vitals: Vital Signs Temp Pulse Pulse Resp BP BP Pulse Ox 07/18/23 12:00 94 151/77 07/18/23 10:40 97.9 F 94 20 132/73 95 07/18/23 08:00 104 H 20 132/90 97 07/18/23 07:32 110 H 07/18/23 07:27 120 H 20 132/91 92 L 07/18/23 07:00 110 H 18 143/93 97 07/18/23 05:32 98.6 F 81 16 152/85 96 Intake and Output 07/17/23 07/18/23 07/18/23 22:59 06:59 14:59 Output Total 700 Balance -700 Output: Urine 700 Other: Voiding Method Indwelling Catheter Weight 77.111 kg 77.111 kg Results CBC & Chem 7: 07/18/23 06:10 07/18/23 06:10 Labs: Abnormal Lab Results - Last 24 Hours (Table) 07/18/23 07/18/23 Range/Units 06:10 06:10 WBC 16.5 H (3.8-10.6) k/uL Neutrophils # 13.9 H (1.3-7.7) k/uL Sodium 134 L (137-145) mmol/L Glucose 128 H (74-99) mg/dL Calcium 8.3 L (8.4-10.2) mg/dL Thrombosis Risk Factor Assmnt - Choose All That Apply Each Risk Factor Represents 2 Points: Age 61-74 years Thrombosis Risk Factor Assessment Total Risk Factor Score: 2 Thrombosis Risk Factor Assessment Level: Low Risk
--- NOTE | 2023-07-18 14:26 | XR ---
EXAMINATION TYPE: XR chest 2V DATE OF EXAM: 07/18/2023 2:19 PM COMPARISON: CT abdomen pelvis 07/18/2023 TECHNIQUE: XR chest 2V Frontal and lateral views of the chest. CLINICAL INDICATION:Male, 67 years old with history of Chest pain; recent prostatectomy. FINDINGS: Lungs/Pleura: There is no evidence of pleural effusion, focal consolidation, or pneumothorax. Pulmonary vascularity: Unremarkable. Heart/mediastinum: Cardiomediastinal silhouette is normal in size. Mediastinum. Musculoskeletal: No acute osseous pathology. Soft tissues: Bilateral chest and neck subcutaneous disease emphysema. Other: Gaseous distention of the small bowel. Pneumoperitoneum. IMPRESSION: Subcutaneous emphysema within the bilateral chest wall with pneumoperitoneum and pneumomediastinum co rresponding to earlier CT abdomen pelvis today. Additional subcutaneous emphysema within the bilatera l neck.
[2023-07-18] MEDS ORDERED: FAMOTIDINE 20 MG TAB PO SCH (21:00)
[2023-07-18] MEDS: PANTOPRAZOLE 40 MG/10 ML VIAL IV SCH (23:02)
[2023-07-18] MEDS: CIPROFLOXACIN HCL 250 MG TAB PO SCH (23:03)
[2023-07-18] MEDS: carvediloL 3.125 MG TAB PO SCH (23:05)
--- NOTE | 2023-07-19 07:01 | P.CRDCN ---
History of Present Illness Consult date: 07/19/23 Chief complaint: Nausea and vomiting History of present illness: The patient is a pleasant 67-year-old gentleman with a past medical history sign ificant for hypertension and dyslipidemia and "history of heart attack" who underwent 2 days ago probiotic prostatectomy and he was discharged the following day in stable medical condition. Since he left the hospital he has been experiencing extensive nausea and vomiting and for the last few episodes have been associated with blood in it. He decided to come to the hospital for further evaluation. We consulted to see the patient because he was found to be tachycardic on examination and subsequently an EKG was performed and showed what it seems to be atrial fibrillation which is new to the patient. The patient stated that he never been diagnosed with atrial fibrillation before. He was inf ormed in the last that he was diagnosed with "heart attack" but that was about 20 years ago. Beside that he does have hypertension and dyslipidemia. He is asymptomatic from a perivascular standpoint of view, internal of any heart racing or fluttering or dizziness or lightheadedness or presyncope or syncope and no symptoms of any chest pain or chest discomfort or shortness of breath. No lower extremity edema as well. The EKG showed what it seems to be atrial fibrillation with diffuse nonspecific ST and T wave abnormalities. Currently he is on carvedilol. He is not on any oral anticoagulation because he was experiencing the blood associated with the vomiting. Hemoglobin is a stable. Kidney function and throat was within normal limits as well. The examination is remarkable for tachycardia with a heart rate around 100 bpm with a clear breathing sounds bilaterally and no lower extremity edema noted. Please note that the patient was converted to normal sinus mechanism. Assessment Status post laparoscopic prostatectomy Symptoms of nausea and vomiting and lately associated with blood Atrial fibrillation which is new the patient the patient converted to normal sinus mechanism Hypertension Dyslipidemia Possible CAD by history Plan Continue the current medical regimen Continue the current dose of carvedilol Obtain further cardiac investigation including an echocardiogram to assess ejection fraction Consider oral anticoagulation, based on the echo results to assess the NORA-VASC score, and also after we know that is safe from the surgical standpoint overview Further recommendation to follow Past Medical History Past Medical History: Cancer, Myocardial Infarction ([place]), Osteoarthritis ([place]), Prostate Disorder Additional Past Medical History / Comment(s): Recent respiratory infection, finished Steroid and Z-Pack 07/07/23, patient following up with Dr Harris 07/09/23. Current prostate cancer. Was told he had a minor [place] about 25 yrs ago, pt didn't know it occured. Last Myocardial Infarction Date:: Unknown History of Any Multi-Drug Resistant Organisms: None Reported Past Surgical History: Back Surgery, Hernia Repair Additional Past Surgical History / Comment(s): Left hand little finger surgery. Lumbar discectomy(2 discs) 25+ yrs ago. Past Anesthesia/Blood Transfusion Reactions: Motion Sickness Past Psychological History: No Psychological Hx Reported Smoking Status: Current every day smoker Past Alcohol Use History: Rare Past Drug Use History: Marijuana - Past Family History Daughter(s) Family Medical History: Cancer Additional Family Medical History / Comment(s): Breast cancer. Medications and Allergies Home Medications Medication Instructions Recorded Confirmed Type Aspirin [Adult Low Dose Aspirin EC] 81 mg PO DAILY 07/08/23 07/18/23 History Cetirizine HCl [Zyrtec] 10 mg PO DAILY 07/08/23 07/18/23 History Famotidine/Ca Carb/Mag Hydrox 1 tab PO HS 07/08/23 07/18/23 History [Pepcid Complete Tablet Chew] Simvastatin 40 mg PO DAILY 07/08/23 07/18/23 History carvediloL [Coreg] 3.125 mg PO BID 07/08/23 07/18/23 History Ciprofloxacin HCl [Cipro] 250 mg PO Q12HR #6 tablet 07/17/23 07/18/23 Rx HYDROcodone/APAP 5-325MG [[place] 1 tab PO Q6HR PRN 3 Days #6 tab 07/17/23 07/18/23 Rx 5-325] Ketorolac [Toradol] 10 mg PO Q6HR PRN #15 tab 07/17/23 07/18/23 Rx Allergies Allergy/AdvReac Type Severity Reaction Status Date / Time No Known Allergies Allergy Verified 07/16/23 10:42 Physical Exam Vitals: Vital Signs Temp Pulse Pulse Resp BP BP Pulse Ox 07/19/23 04:00 98.0 F 103 H 18 107/69 95 07/19/23 02:00 87 18 07/18/23 20:00 97.8 F 87 18 133/72 95 07/18/23 16:00 93 141/84 96 07/18/23 14:00 94 20 07/18/23 12:00 94 151/77 07/18/23 10:40 97.9 F 94 20 132/73 95 07/18/23 08:00 104 H 20 132/90 97 07/18/23 07:32 110 H 07/18/23 07:27 120 H 20 132/91 92 L 07/18/23 07:00 110 H 18 143/93 97 Intake and Output 07/18/23 07/18/23 07/19/23 14:59 22:59 06:59 Output Total 700 300 675 Balance -700 -300 -675 Output: Urine 700 300 675 Other: Voiding Method Indwelling Catheter Indwelling Catheter Indwelling Catheter Weight 77.111 kg Results 07/18/23 06:10 07/18/23 06:10 Cardiac Enzymes 07/18/23 Range/Units 06:10 Troponin I <0.012 (0.000-0.034) ng/mL Current Medications Generic Name Dose Route Start Last Admin Trade Name Freq PRN Reason Stop Dose Admin Acetaminophen 650 mg 07/18/23 09:11 Acetaminophen Tab 325 Mg Tab PO Q6HR PRN Mild Pain or Fever > 100.5 Hydrocodone Bitart/Acetaminophen 1 each 07/18/23 13:20 Hydrocodone/Apap 5-325mg 1 Each Tab PO Q6HR PRN Pain Atorvastatin Calcium 20 mg 07/19/23 09:00 Atorvastatin 20 Mg Tab PO DAILY JEFFY Carvedilol 3.125 mg 07/18/23 21:00 07/18/23 23:05 Carvedilol 3.125 Mg Tab PO 3.125 mg BID JEFFY Administration Ciprofloxacin 250 mg 07/18/23 21:00 07/18/23 23:03 Ciprofloxacin Hcl 250 Mg Tab PO 250 mg Q12HR JEFFY Administration Protocol Hydromorphone HCl 0.5 mg 07/18/23 09:11 Hydromorphone 0.5 Mg/0.5 Ml Syringe IVP Q3HR PRN Moderate Pain (Scale 4 to 6) Hydromorphone HCl 1 mg 07/18/23 09:11 07/18/23 23:03 Hydromorphone 1 Mg/Ml 1 Ml Syringe IVP 1 mg Q3HR PRN Administration Severe Pain (Scale 7 to 10) Sodium Chloride 1,000 mls @ 75 mls/hr 07/18/23 09:15 07/18/23 23:04 Saline 0.9% IV Not Given .[id number] JEFFY Loratadine 10 mg 07/19/23 09:00 Loratadine 10 Mg Tab PO DAILY JEFFY Naloxone HCl 0.2 mg 07/18/23 09:11 Naloxone 0.4 Mg/Ml 1 Ml Vial IV Q2M PRN Opioid Reversal Ondansetron HCl 4 mg 07/18/23 09:11 Ondansetron 4 Mg/2 Ml Vial IVP Q8HR PRN Nausea And Vomiting Pantoprazole Sodium 40 mg 07/18/23 21:00 07/18/23 23:02 Pantoprazole 40 Mg/10 Ml Vial IV 40 mg BID JEFFY Administration Intake and Output 07/18/23 07/18/23 07/19/23 14:59 22:59 06:59 Output Total 700 300 675 Balance -700 -300 -675 Output: Urine 700 300 675 Other: Voiding Method Indwelling Catheter Indwelling Catheter Indwelling Catheter Weight 77.111 kg Patient Weight 07/19/23 06:59 Weight 77.111 kg 07/18/23 06:10 07/18/23 06:10
[2023-07-19] MEDS ORDERED: ASPIRIN 81 MG PO SCH (09:00)
[2023-07-19] MEDS ORDERED: PANTOPRAZOLE 40 MG/10 ML VIAL IV SCH (09:00)
[2023-07-19] MEDS: PANTOPRAZOLE 40 MG/10 ML VIAL IV SCH ×2 (10:16→20:52)
[2023-07-19] MEDS: carvediloL 3.125 MG TAB PO SCH ×2 (10:17→20:47)
[2023-07-19] MEDS: ATORVASTATIN 20 MG TAB PO SCH (10:17)
[2023-07-19] MEDS: CIPROFLOXACIN HCL 250 MG TAB PO SCH ×2 (10:17→20:47)
[2023-07-19] MEDS: LORATADINE 10 MG TAB PO SCH (10:17)
[2023-07-19] MEDS ORDERED: RX INFO: IV CONTRAST WAS GIVEN 1 EACH MISC MISCELLANE PRN (11:26)
--- NOTE | 2023-07-19 12:15 | P.PN ---
Subjective Progress Note Date: 07/19/23 The patient is in the hospital with post op pain from an ralp done last week. He continues to improve. He has walked, passed gas and taken liquids. Objective - Vital Signs Vital signs: Vital Signs Temp 98.5 F 07/19/23 08:00 Pulse 97 07/19/23 08:00 Resp 16 07/19/23 08:00 BP 144/88 07/19/23 08:00 Pulse Ox 92 L 07/19/23 08:00 FiO2 Intake & Output 07/18/23 07/19/23 07/19/23 18:59 06:59 18:59 Output Total 1000 675 600 Balance -1000 -675 -600 Weight 77.111 kg Output: Urine 1000 675 600 Other: Voiding Method Indwelling Catheter Indwelling Catheter - Constitutional Constitutional Comment(s): no subq air palpable - Respiratory Details: normal non labored - Gastrointestinal Gastrointestinal Comment(s): non tender soft. - Labs CBC & Chem 7: 07/18/23 06:10 07/18/23 06:10 Assessment and Plan Assessment: Impression: post op pain and ileus resolving. Post op subq air asa expected from a laparoscopy resolving.. Recommedations. From a urological standpoint the patient can go home.
--- NOTE | 2023-07-19 13:04 | CT ---
EXAMINATION TYPE: CT chest w con CT DLP: 371.5 mGycm, Automated exposure control for dose reduction was used. DATE OF EXAM: 07/19/2023 12:50 PM COMPARISON: Chest radiograph 07/18/2023, CT abdomen pelvis 07/18/2023 CLINICAL INDICATION:Male, 67 years old with history of subcutaneous emphysema, chest pain; PHH, chest pain TECHNIQUE: Multiple axial images were obtained through the chest following the administration of 100 cc of Isovue 300. . Coronal and sagittal reformats reviewed. FINDINGS: LUNGS/ PLEURA: Trace right pleural effusion with associated atelectasis. No pneumothorax or focal con solidation. Linear atelectasis within the bilateral lower lobes. AIRWAY: Patent and unremarkable.. HEART: Size within normal limits. No pericardial effusion. MEDIASTINUM: No evidence of adenopathy. Pneumomediastinum redemonstrated. VASCULATURE: No aortic aneurysm. MUSCULOSKELETAL: No acute osseous abnormalities. Prominence posterior involving the inferior endplate of the L1 vertebral body. SOFT TISSUES/LYMPH NODES: Bilateral gynecomastia. Subcutaneous emphysema within the bilateral in ante rior chest fernando extending into the bilateral supraclavicular regions. LOWER NECK: No significant findings. UPPER ABDOMEN: Pneumoperitoneum redemonstrated. Hepatic cysts redemonstrated. IMPRESSION: 1. Pneumomediastinum and pneumoperitoneum redemonstrated with subcutaneous emphysema within the chest and neck. Findings likely related to recent prostatectomy. 2. Trace right pleural effusion with associated atelectasis.
[2023-07-19] MEDS: SODIUM CHLORIDE 0.9% 1,000 ML IV SCH (13:11)
--- NOTE | 2023-07-19 13:17 | P.PN ---
Subjective Progress Note Date: 07/19/23 patient is a 67-year-old gentleman with past medical history significant for hypertension, hyperlipidemia, recent laparoscopic prostatectomy who presented to the ER for abdominal pain and nausea and vomiting. Patient underwent robotic- assisted radical prostatectomy 2 days ago by . Patient was discharged yesterday in stable condition. Patient stated he was all right when last night he started experiencing abdominal pain is generalized associated with nausea and vomiting. Patient stated that the vomitus was coffee-ground in color and it burnt like acid.. There was no complain of any diarrhea or any blood in the stools. Patient continued to have these complaints for the night and decided to come to the ER. Initial lab work done in the ER showed WBC 16.5, hemoglobin 14.8, platelet count 289, sodium 134, potassium 3.9, BUN 15, creatinine 0.8 CT abdominal and pelvis done showed postsurgical changes from prostatectomy trace fluid in the pelvis and a small hematoma anterior to the urinary bladder, moderate pneumoperitoneum with pneumomediastinum and subcu emphysema. Infrarenal abdominal aortic aneurysm up to 3 cm in size EKG done showed ventricular rate 101, QRS 91, no ST segment elevation, no T-wave inversion, . P waves are noticeable in some leads patient was admitted to medicine service 07/19. Patient seen and examined. Denies any nausea or vomiting. States abdominal pain has improved. Complaining of some pain in his throat, because of history of vomiting and subcu emphysema on x-ray will order CT chest. REVIEW OF SYSTEMS: CONSTITUTIONAL: No fever, no malaise,. CARDIOVASCULAR: No chest pain, no palpitations, no syncope. PULMONARY: No shortness of breath, no cough, GASTROINTESTINAL: As mentioned above NEUROLOGICAL: No headaches, no weakness, PHYSICAL EXAMINATION: GENERAL: The patient is alert and oriented x3, not in any acute distress. Well developed, well nourished. HEENT: Pupils are round and equally reacting to light. EOMI. No scleral icterus. No conjunctival pallor. Normocephalic, atraumatic. No pharyngeal erythema. No thyromegaly. CARDIOVASCULAR: S1 and S2 present. No murmurs, rubs, or gallops. PULMONARY: Chest is clear to auscultation, no wheezing or crackles. ABDOMEN: Soft, nontender, laparoscopic surgical incision seen MUSCULOSKELETAL: No joint swelling or deformity. EXTREMITIES: No cyanosis, clubbing, or pedal edema. NEUROLOGICAL: Gross neurological examination did not reveal any focal deficits. SKIN: No rashes. Assessment and plan coffee-ground emesis Abdominal pain Post operative ileus Atrial fibrillation Recent robotic-assisted radical prostatectomy Hypertension Dyslipidemia Possible CAD by history Monitor vital signs Monitor CBC Monitor CMP Continue telemetry monitoring CT chest ordered. Currently on clear liquid diet Continue IV fluids 2-D echo ordered cardiology following Urology on board Labs and medication were reviewed.. Continue same treatment. Continue with symptomatic treatment. Resume home medication. Monitor labs and vitals. DVT and GI prophylaxis. Further recommendations as per clinical course of the patient Dictation was produced using [employer] dictation software. please excuse any grammatical, word or spelling errors. Objective - Vital Signs Vital signs: Vital Signs Temp 98.6 F 07/19/23 12:00 Pulse 94 07/19/23 12:00 Resp 18 07/19/23 12:00 BP 120/79 07/19/23 12:00 Pulse Ox 94 L 07/19/23 12:00 FiO2 Intake & Output 07/18/23 07/19/23 07/19/23 18:59 06:59 18:59 Output Total 1000 675 600 Balance -1000 -675 -600 Weight 77.111 kg Output: Urine 1000 675 600 Other: Voiding Method Indwelling Catheter Indwelling Catheter Indwelling Catheter - Labs CBC & Chem 7: 07/18/23 06:10 07/18/23 06:10
--- NOTE | 2023-07-19 14:03 | P.GSCN ---
History of Present Illness Consult date: 07/19/23 Reason for Consult: Upper GI bleed History of present illness: This is a 67-year-old male who underwent recent robotic prostatectomy 4 days ago . Patient was thought to have an emesis which may have had coffee-ground emesis. The patient states he feels fairly well. He has some minimal incisional pain. Patient had a CAT scan performed today which showed some mediastinal air which was thought to be related to his recent laparoscopic proce dure. Patient states he feels well overall wants to go home. Past Medical History Past Medical History: Cancer, Myocardial Infarction ([place]), Osteoarthritis ([place]), Prostate Disorder Additional Past Medical History / Comment(s): Recent respiratory infection, finished Steroid and Z-Pack 07/07/23, patient following up with Dr Harris 07/09. Current prostate cancer. Was told he had a minor [place] about 25 yrs ago, pt didn't know it occured. Last Myocardial Infarction Date:: Unknown History of Any Multi-Drug Resistant Organisms: None Reported Past Surgical History: Back Surgery, Hernia Repair Additional Past Surgical History / Comment(s): Left hand little finger surgery. Lumbar discectomy(2 discs) 25+ yrs ago. Past Anesthesia/Blood Transfusion Reactions: Motion Sickness Past Psychological History: No Psychological Hx Reported Smoking Status: Current every day smoker Past Alcohol Use History: Rare Past Drug Use History: Marijuana - Past Family History Daughter(s) Family Medical History: Cancer Additional Family Medical History / Comment(s): Breast cancer. Medications and Allergies Home Medications Medication Instructions Recorded Confirmed Type Aspirin [Adult Low Dose Aspirin EC] 81 mg PO DAILY 07/08/23 07/18/23 History Cetirizine HCl [Zyrtec] 10 mg PO DAILY 07/08/23 07/18/23 History Famotidine/Ca Carb/Mag Hydrox 1 tab PO HS 07/08/23 07/18/23 History [Pepcid Complete Tablet Chew] Simvastatin 40 mg PO DAILY 07/08/23 07/18/23 History carvediloL [Coreg] 3.125 mg PO BID 07/08/23 07/18/23 History Ciprofloxacin HCl [Cipro] 250 mg PO Q12HR #6 tablet 07/17/23 07/18/23 Rx HYDROcodone/APAP 5-325MG [[place] 1 tab PO Q6HR PRN 3 Days #6 tab 07/17/23 07/18/23 Rx 5-325] Ketorolac [Toradol] 10 mg PO Q6HR PRN #15 tab 07/17/23 07/18/23 Rx Allergies Allergy/AdvReac Type Severity Reaction Status Date / Time No Known Allergies Allergy Verified 07/16/23 10:42 Surgical - Exam Vital Signs Temp Pulse Resp BP Pulse Ox 98.6 F 81 16 152/85 96 07/18/23 05:32 07/18/23 05:32 07/18/23 05:32 07/18/23 05:32 07/18/23 05:32 - General well developed, well nourished, no distress - Eyes PERRL - ENT normal pinna - Neck no masses - Respiratory normal expansion - Cardiovascular Rhythm: regular - Abdomen Healing laparoscopic incisions Abdomen: soft, non tender Results - Labs 07/18/23 06:10 07/18/23 06:10 - Imaging CT scan - abdomen: report reviewed (Reviewed) Assessment and Plan Assessment: The patient appears had a benign abdomen. I think he can be observed. If he shows any signs of hematemesis or further upper GI bleed. He may require EGD. We will follow with you.
[2023-07-19 16:52] LABS: HGB 12.2 gm/dL (13.0-17.5); MCH 31.8 pg (25.0-35.0); MCHC 33.8 g/dL (31.0-37.0); Mean Platelet Volume 7.4; Platelet Count 231 k/uL (150-450); RBC 3.83 m/uL (4.30-5.90); RDW 12.1 % (11.5-15.5); WBC 10.9 k/uL (3.8-10.6)
[2023-07-19 17:58] LABS: ALT 22 U/L (4-49); AST 26 U/L (17-59); African American GFR (CKD) >90 (>60 ml/min/1.73 sqM); Albumin 2.8 g/dL (3.5-5.0); Alkaline Phosphatase 87 U/L (38-126); Anion Gap 6 mmol/L; Blood Urea Nitrogen 9 mg/dL (9-20); Calcium 7.9 mg/dL (8.4-10.2); Carbon Dioxide 28 mmol/L (22-30); Chloride 98 mmol/L (98-107); Glucose 84 mg/dL (74-99); Non-African American GFR(CKD) >90 (>60 ml/min/1.73 sqM); Potassium 3.9 mmol/L (3.5-5.1); Sodium 132 mmol/L (137-145); Total Bilirubin 1.1 mg/dL (0.2-1.3); Total Protein 5.6 g/dL (6.3-8.2)
[2023-07-20] MEDS: SODIUM CHLORIDE 0.9% 1,000 ML IV SCH ×2 (02:35→07:58)
[2023-07-20 04:25] VITALS: RESP 18
[2023-07-20] MEDS: PANTOPRAZOLE 40 MG/10 ML VIAL IV SCH (07:55)
[2023-07-20] MEDS: ATORVASTATIN 20 MG TAB PO SCH (07:55)
[2023-07-20] MEDS: LORATADINE 10 MG TAB PO SCH (07:55)
[2023-07-20] MEDS: CIPROFLOXACIN HCL 250 MG TAB PO SCH (07:55)
[2023-07-20] MEDS: carvediloL 3.125 MG TAB PO SCH (07:55)
[2023-07-20] MEDS ORDERED: carvediloL 3.125 MG TAB PO ONE (08:30)
--- NOTE | 2023-07-20 08:54 | P.PN ---
Subjective Progress Note Date: 07/20/23 No acute overnight events, indicates nausea vomiting has resolved. Denies any abdominal pain. Passing flatus Objective - Vital Signs Vital signs: Vital Signs Temp 98.1 F 07/20/23 04:00 Pulse 100 07/20/23 04:00 Resp 18 07/20/23 04:00 BP 145/80 07/20/23 04:00 Pulse Ox 94 L 07/20/23 04:00 FiO2 Intake & Output 07/19/23 07/20/23 07/20/23 18:59 06:59 18:59 Intake Total 660 100 Output Total 1790 475 Balance -1130 -475 100 Intake: Oral 660 100 Output: Urine 1790 475 Other: Voiding Method Indwelling Catheter Indwelling Catheter - Constitutional General appearance: Present: no acute distress - Gastrointestinal General gastrointestinal: Present: soft. Absent: distended, tenderness - Psychiatric Psychiatric: Present: A&O x's 3 - Labs CBC & Chem 7: 07/19/23 15:57 07/19/23 15:57 Labs: Abnormal Lab Results - Last 24 Hours (Table) 07/19/23 07/19/23 Range/Units 15:57 15:57 WBC 10.9 H (3.8-10.6) k/uL RBC 3.83 L (4.30-5.90) m/uL Hgb 12.2 L (13.0-17.5) gm/dL Hct 36.0 L (39.0-53.0) % Sodium 132 L (137-145) mmol/L Calcium 7.9 L (8.4-10.2) mg/dL Total Protein 5.6 L (6.3-8.2) g/dL Albumin 2.8 L (3.5-5.0) g/dL Assessment and Plan Assessment: Status post robotic radical prostatectomy on July 16. Admitted to the hospital with intractable pain and nausea and vomiting. Which has resolved now. Has been evaluated by the cardiology for A. fib -From urology standpoint is okay for discharge with the Coombs catheter, advised to keep follow-up as an outpatient for pathology review and for catheter removal -From urology standpoint okay to start anticoagulation,
[2023-07-20] MEDS ORDERED: APIXABAN 5 MG TAB PO SCH (09:00)
[2023-07-20 09:22] LABS: Basophils % (A) 0 %; Eosinophils # (A) 0.2 k/uL (0-0.7); Eosinophils % (A) 2 %; HCT 36.7 % (39.0-53.0); HGB 12.5 gm/dL (13.0-17.5); Lymphocytes # (A) 1.1 k/uL (1.0-4.8); Lymphocytes % (A) 14 %; MCV 94.1 fL (80.0-100.0); Mean Platelet Volume 7.5; Monocytes # (A) 0.6 k/uL (0-1.0); Monocytes % (A) 8 %; Neutrophils # (A) 5.6 k/uL (1.3-7.7); Neutrophils % (A) 74 %; Platelet Count 226 k/uL (150-450); RDW 12.1 % (11.5-15.5); WBC 7.6 k/uL (3.8-10.6)
[2023-07-20 09:40] LABS: ALT 21 U/L (4-49); AST 24 U/L (17-59); African American GFR (CKD) >90 (>60 ml/min/1.73 sqM); Albumin 2.7 g/dL (3.5-5.0); Alkaline Phosphatase 77 U/L (38-126); Blood Urea Nitrogen 9 mg/dL (9-20); Calcium 7.7 mg/dL (8.4-10.2); Carbon Dioxide 30 mmol/L (22-30); Glucose 133 mg/dL (74-99); Non-African American GFR(CKD) >90 (>60 ml/min/1.73 sqM); Total Bilirubin 0.9 mg/dL (0.2-1.3); Total Protein 5.5 g/dL (6.3-8.2)
[2023-07-20 10:14] LABS: Anion Gap 5 mmol/L; Chloride 100 mmol/L (98-107); Potassium 3.4 mmol/L (3.5-5.1); Sodium 135 mmol/L (137-145)
[2023-07-20 11:07] VITALS: TEMP 97.4
[2023-07-20] MEDS ORDERED: POTASSIUM CHLORIDE ER 20 MEQ TAB.ER PO STA (12:00)
--- NOTE | 2023-07-20 12:25 | CA ---
Transthoracic Echo Report Name: Pablo Gipson Age: 67 Gender: M : 1955 Exam Date: 07/20/2023 09:44 Exam Location: [facility] Ht (in): 72 Wt (lb): 170 Ordering Physician: Sohan Rascon MD ([id number]) Attending/Referring Phys: Radar Scientist Gilma Gomez RDCS Procedure CPT: Indications: a. fib Cardiac Hx: Technical Quality: Fair Contrast 1: Total Dose (mL): Contrast 2: Total Dose (mL): MEASUREMENTS (Male / Female) Normal Values 2D ECHO LV Diastolic Diameter PLAX 5.2 cm 4.2 - 5.9 / 3.9 - 5.3 cm LV Systolic Diameter PLAX 3.9 cm IVS Diastolic Thickness 1.0 cm 0.6 - 1.0 / 0.6 - 0.9 cm LVPW Diastolic Thickness 1.0 cm 0.6 - 1.0 / 0.6 - 0.9 cm LV Relative Wall Thickness 0.4 RV Internal Dim ED PLAX 2.6 cm LA Systolic Diameter LX 4.6 cm 3.0 - 4.0 / 2.7 - 3.8 cm LV Diastolic Volume MOD 4C 100.3 cm??? LV Systolic Volume MOD 4C 33.3 cm??? LV Ejection Fraction MOD 4C 66.8 % LV Cardiac Index MOD 4C 2979.2 cm???/min???m??? LV Diastolic Length 4C 8.9 cm LV Systolic Length 4C 7.0 cm LV Diastolic Volume MOD 2C 95.0 cm??? LV Systolic Volume MOD 2C 32.5 cm??? LV Ejection Fraction MOD 2C 65.8 % LV Cardiac Index MOD 2C 2779.9 cm???/min???m??? LV Diastolic Length 2C 8.7 cm LV Systolic Length 2C 6.7 cm LA Volume 54.4 cm??? 18 - 58 / 22 - 52 cm??? M-MODE Aortic Root Diameter MM 3.4 cm MV E Point Septal Separation 0.6 cm DOPPLER AV Peak Velocity 147.9 cm/s AV Peak Gradient 8.8 mmHg MV Area PHT 2.5 cm??? Mitral E Point Velocity 85.3 cm/s Mitral A Point Velocity 100.9 cm/s Mitral E to A Ratio 0.8 MV Deceleration Time 299.4 ms MV E' Velocity 8.9 cm/s Mitral E to MV E' Ratio 9.5 TR Peak Velocity 219.2 cm/s TR Peak Gradient 19.2 mmHg Right Ventricular Systolic Press 24.2 mmHg FINDINGS Left Ventricle Left ventricular ejection fraction is estimated at 55-60 %. Left ventricular cavity size normal. Left ventricular wall thickness normal. Right Ventricle Normal right ventricular size. Right ventricular systolic pressure within normal limits. Right Atrium Normal right atrial size. Left Atrium Normal left atrial size. Mitral Valve Structurally normal mitral valve. Trace mitral regurgitation. Aortic Valve Aortic valve not well visualized. No aortic valve stenosis or regurgitation. Tricuspid Valve Structurally normal tricuspid valve. Mild tricuspid regurgitation. Pulmonic Valve Pulmonic valve not well visualized. Pericardium No pericardial effusion. Aorta Normal size aortic root and proximal ascending aorta. CONCLUSIONS Normal LV size and systolic function Previewed by: Dr. Radu Deleon MD (Electronically Signed) Final Date: 20 July 2023 12:24
--- NOTE | 2023-07-20 12:37 | P.PN ---
Subjective Progress Note Date: 07/20/23 CHIEF COMPLAINT: Hematemesis HISTORY OF PRESENT ILLNESS: Patient has had no further vomiting. He denies any abdominal pain. Denies any bowel movement. Vitals stable. Hemoglobin stable at 12.5. Potassium 3.4 and being replaced PHYSICAL EXAM: VITAL SIGNS: Reviewed. GENERAL: Well-developed in no acute distress. ABDOMEN: Soft. Nondistended. Nontender. NEUROLOGIC: Alert and oriented. Cranial nerves II through XII grossly intact. ASSESSMENT: 1. Upper GI bleed no further evidence of hematemesis 2. Status post recent robotic radical prostatectomy PLAN: -Advance diet to full liquids -Continue to observe -Patient may require EGD if any signs of hematemesis Physician Scale Expert note has been reviewed by physician. Signing provider agrees with the documented findings, assessment, and plan of care. Objective - Vital Signs Vital signs: Vital Signs Temp 97.4 F L 07/20/23 11:05 Pulse 71 07/20/23 11:05 Resp 18 07/20/23 11:07 BP 133/80 07/20/23 11:05 Pulse Ox 97 07/20/23 11:05 FiO2 Intake & Output 07/19/23 07/20/23 07/20/23 18:59 06:59 18:59 Intake Total 660 100 Output Total 1790 475 Balance -1130 -475 100 Intake: Oral 660 100 Output: Urine 1790 475 Other: Voiding Method Indwelling Catheter Indwelling Catheter Indwelling Catheter - Labs CBC & Chem 7: 07/20/23 08:21 07/20/23 08:21 Labs: Abnormal Lab Results - Last 24 Hours (Table) 07/19/23 07/19/23 07/20/23 Range/Units 15:57 15:57 08:21 WBC 10.9 H (3.8-10.6) k/uL RBC 3.83 L 3.90 L (4.30-5.90) m/uL Hgb 12.2 L 12.5 L (13.0-17.5) gm/dL Hct 36.0 L 36.7 L (39.0-53.0) % Sodium 132 L (137-145) mmol/L Potassium (3.5-5.1) mmol/L Glucose (74-99) mg/dL Calcium 7.9 L (8.4-10.2) mg/dL Total Protein 5.6 L (6.3-8.2) g/dL Albumin 2.8 L (3.5-5.0) g/dL 07/20/23 Range/Units 08:21 WBC (3.8-10.6) k/uL RBC (4.30-5.90) m/uL Hgb (13.0-17.5) gm/dL Hct (39.0-53.0) % Sodium 135 L (137-145) mmol/L Potassium 3.4 L (3.5-5.1) mmol/L Glucose 133 H (74-99) mg/dL Calcium 7.7 L (8.4-10.2) mg/dL Total Protein 5.5 L (6.3-8.2) g/dL Albumin 2.7 L (3.5-5.0) g/dL
--- NOTE | 2023-07-20 12:55 | P.PN ---
Subjective HISTORY OF PRESENT ILLNESS: The patient is a pleasant 67-year-old gentleman with a past medical history significant for hypertension and dyslipidemia and "history of heart attack" who underwent 2 days ago probiotic prostatectomy and he was discharged the following day in stable medical condition. Since he left the hospital he has been experiencing extensive nausea and vomiting and for the last few episodes have been associated with blood in it. He decided to come to the hospital for further evaluation. We consulted to see the patient because he was found to be tachycardic on examination and subsequently an EKG was performed and showed what it seems to be atrial fibrillation which is new to the patient. The patient stated that he never been diagnosed with atrial fibrillation before. He was informed in the last that he was diagnosed with "heart attack" but that was about 20 years ago. Beside that he does have hypertension and dyslipidemia. He is asymptomatic from a perivascular standpoint of view, internal of any heart racing or fluttering or dizziness or lightheadedness or presyncope or syncope and no symptoms of any chest pain or chest discomfort or shortness of breath. No lower extremity edema as well. The EKG showed what it seems to be atrial fibrillation with diffuse nonspecific ST and T wave abnormalities. Currently he is on carvedilol. He is not on any oral anticoagulation because he was experiencing the blood associated with the vomiting. Hemoglobin is a stable. Kidney function and throat was within normal limits as well. The examination is remarkable for tachycardia with a heart rate around 100 bpm with a clear breathing sounds bilaterally and no lower extremity edema noted. Please note that the patient was converted to normal sinus mechanism. 07/20/2023 Patient examined this morning at the bedside. Patient denies chest pain or pressure. He denies shortness of breath. Telemetry reveals sinus mechanism. Vital signs are stable. Echocardiogram completed revealing ejection fraction 55-60%, trace MR, mild TR. PHYSICAL EXAM: VITAL SIGNS: Reviewed. GENERAL: Well-developed in no acute distress. NECK: Supple. No JVD or thyromegaly LUNGS: Respirations even and unlabored. Lungs essentially clear to auscultation bilaterally. HEART: Regular rate and rhythm. S1 and S2 heard. EXTREMITIES: Normal range of motion. No clubbing or cyanosis. Peripheral pulses intact. No lower extremity edema ASSESSMENT: Status post laparoscopic prostatectomy Nausea and vomiting, resolved New-onset paroxysmal atrial fibrillation, currently maintaining sinus mechanism Hypertension Hyperlipidemia Questionable history of CAD per patient PLAN: Continue current cardiac medications Discussed case with urology who is okay with initiating anticoagulation. Begin Eliquis 5mg BID. Further recommendations pending patient's course Nurse practitioner note has been reviewed by physician. Signing provider agrees with the documented findings, assessment, and plan of care. Objective - Vital Signs Vital signs: Vital Signs Temp 97.4 F L 07/20/23 11:05 Pulse 71 07/20/23 11:05 Resp 18 07/20/23 11:07 BP 133/80 07/20/23 11:05 Pulse Ox 97 07/20/23 11:05 FiO2 Intake & Output 07/19/23 07/20/23 07/20/23 18:59 06:59 18:59 Intake Total 660 100 Output Total 1790 475 Balance -1130 -475 100 Intake: Oral 660 100 Output: Urine 1790 475 Other: Voiding Method Indwelling Catheter Indwelling Catheter Indwelling Catheter - Labs CBC & Chem 7: 07/20/23 08:21 07/20/23 08:21 Labs: Abnormal Lab Results - Last 24 Hours (Table) 07/19/23 07/19/23 07/20/23 Range/Units 15:57 15:57 08:21 WBC 10.9 H (3.8-10.6) k/uL RBC 3.83 L 3.90 L (4.30-5.90) m/uL Hgb 12.2 L 12.5 L (13.0-17.5) gm/dL Hct 36.0 L 36.7 L (39.0-53.0) % Sodium 132 L (137-145) mmol/L Potassium (3.5-5.1) mmol/L Glucose (74-99) mg/dL Calcium 7.9 L (8.4-10.2) mg/dL Total Protein 5.6 L (6.3-8.2) g/dL Albumin 2.8 L (3.5-5.0) g/dL 07/20/23 Range/Units 08:21 WBC (3.8-10.6) k/uL RBC (4.30-5.90) m/uL Hgb (13.0-17.5) gm/dL Hct (39.0-53.0) % Sodium 135 L (137-145) mmol/L Potassium 3.4 L (3.5-5.1) mmol/L Glucose 133 H (74-99) mg/dL Calcium 7.7 L (8.4-10.2) mg/dL Total Protein 5.5 L (6.3-8.2) g/dL Albumin 2.7 L (3.5-5.0) g/dL
[2023-07-20 15:10] VITALS: BP 131/76; PULSE 74
--- NOTE | 2023-07-20 16:16 | P.DS ---
Providers Date of admission: 07/18/23 09:11 Attending physician: Sapphire Roberto Consults: 07/18/23 09:11 Consult Physician Urgent Consulting Provider: Sohan Rascon Consult Reason/Comments: new onset a-fib Do you want consulting provider notified?: Yes 07/18/23 09:12 Consult Physician Urgent Consulting Provider: Rafael Dobbs Consult Reason/Comments: Postop pain after prostatectomy on 07/16 Do you want consulting provider notified?: Yes 07/18/23 13:21 Consult Physician Urgent Consulting Provider: Gelacio Corrigan Consult Reason/Comments: Coffee-ground emesis, epigastric pain Do you want consulting provider notified?: Yes Primary care physician: Xander Montana DO Hospital Course: Final diagnosis Coffee-ground emesis Abdominal pain Postoperative ileus resolved Atrial fibrillation new-onset rapid ventricular rate now rate controlled Recent robotic-assisted radical prostatectomy Hypertension Dyslipidemia GI prophylaxis Full code Discharge disposition Patient is cleared by consultations for discharge home. Patient is to continue with indwelling Edmondson catheter and follow-up with urology on discharge. Patient to continue with same Cipro antibiotics as recommended from prior hospital stay postsurgical. Patient has been started on anticoagulation for the atrial fibrillation with eliquis 5 mg twice a day. Copay for eliquis and Xarelto are both over $500 a month for this patient. Patient is given a free 30 day supply of eliquis discount coupon and recommending to follow-up with his PCP and/or cardiology on discharge with transition to warfarin. Hemoglobin remained stable. Patient to follow-up with his PCP Dr. Xnader Riddle in 1-2 days, urology in 1 week, cardiology in 1 week and a general surgery in one week as needed. Repeat labs in 2-3 days. Hospital course This is a 67-year-old male with medical history for hypertension, dyslipidemia, prostate cancer with a recent robotic-assisted radical prostatectomy. Patient returns the hospital in atrial fibrillation with rapid ventricular rate new- onset. There is also episode of coffee-ground emesis per patient. He was admitted under medicine with consults placed to urology, general surgery and cardiology. Had an abdominal pelvis CT on admission shows postsurgical changes from the prostatectomy with trace fluid in the pelvis and a small hematoma anterior to the urinary bladder with moderate pneumoperitoneum with pneumomediastinum and subcu emphysema likely related to recent surgery there is an infrarenal abdominal aortic aneurysm measuring up to 3.0 cm and also clot diverticulosis. Echocardiogram completed showing normal LV size and systolic function. Patient did have elevated white count of 16.5 on admission which is now improved down to 7.6. Normal lactic acid. Urology and general surgery evaluated the patient he has indwelling catheter in place to continue on discharge and f/u outpatient. No surgical intervention recommended further coffee-ground emesis this is completely resolved with no epigastric or abdominal pain noted and no rectal bleeding. Patient may need possible EGD outpatient if this continues however this time it is resolved. Heart rate is now controlled and patient is on Coreg twice a day, anticoagulated with eliquis which as above eliquis and Xarelto are both over $500 a month co-pay and patient is given a free 30 day supply of eliquis discount coupon and will need to be transitioned to warfarin outpatient. Patient is currently denying any chest pain, denies shortness of breath, denies nausea vomiting or diarrhea there is no further episodes of abdominal pain and his surgical pain is well-controlled. Patient's lungs are clear, S1-S2 auscultated, he has positive bowel sounds he is passing gas has not had a bowel movement yet. Patient is cleared for discharge by all consultations. Discharge home with the above-mentioned recommendations. Please see medication reconciliation for list of current medication. Thank you for allowing us to participate in the care of this patient. The impression and plan of care has been dictated by Liset Nielsen, Nurse Practitioner as directed. Dr. Marilou MD I have performed a history and physical examination and medical decision making of this patient, discussed the same with the dictator, and agree with the dictators assessment and plan as written, documented as a scribe. Based on total visit time, I have performed more than 50% of this visit. Patient Condition at Discharge: Stable Plan - Discharge Summary Discharge Rx Participant: Yes New Discharge Prescriptions: New Apixaban [Eliquis] 5 mg PO BID 30 Days #60 tab Continue Simvastatin 40 mg PO DAILY Aspirin [Adult Low Dose Aspirin EC] 81 mg PO DAILY Ciprofloxacin HCl [Cipro] 250 mg PO Q12HR #6 tablet HYDROcodone/APAP 5-325MG [[place] 5-325] 1 tab PO Q6HR PRN 3 Days #6 tab PRN Reason: Pain Cetirizine HCl [Zyrtec] 10 mg PO DAILY carvediloL [Coreg] 3.125 mg PO BID Famotidine/Ca Carb/Mag Hydrox [Pepcid Complete Tablet Chew] 1 tab PO HS Discontinued Ketorolac [Toradol] 10 mg PO Q6HR PRN #15 tab PRN Reason: Pain Discharge Medication List Aspirin [Adult Low Dose Aspirin EC] 81 mg PO DAILY 07/08/23 [History] Cetirizine HCl [Zyrtec] 10 mg PO DAILY 07/08/23 [History] Famotidine/Ca Carb/Mag Hydrox [Pepcid Complete Tablet Chew] 1 tab PO HS 07/08/23 [History] Simvastatin 40 mg PO DAILY 07/08/23 [History] carvediloL [Coreg] 3.125 mg PO BID 07/08/23 [History] Ciprofloxacin HCl [Cipro] 250 mg PO Q12HR #6 tablet 07/17/23 [Rx] HYDROcodone/APAP 5-325MG [[place] 5-325] 1 tab PO Q6HR PRN 3 Days #6 tab 07/17/23 [Rx] Apixaban [Eliquis] 5 mg PO BID 30 Days #60 tab 07/20/23 [Rx] Follow up Appointment(s)/Referral(s): Xander Montana DO [Primary Care Provider] - 1-2 days (OFFICE IS NOT ANSWERING PLEASE CALL TO MAKE YOUR APPOINTMENT FOR THE FIRST AVAILABLE SPOT) Sohan Rascon MD [STAFF PHYSICIAN] - 1 Week (OFFICE WILL CALL WITH FOLLOW UP APPOINTMENT DATE AND TIME) Alberto Harris MD [STAFF PHYSICIAN] - 1 Week (APPOINTMENT MADE ON June @ 10:40AM ) Gelacio Corrigan MD [STAFF PHYSICIAN] - As Needed (APPOINTMENT MADE ON June @ 1:10PM) Ambulatory/Diagnostic Orders: Basic Metabolic Panel [LAB.AMB] Time Frame: 3 Days, Location: None Selected Complete Blood Count w/diff [LAB.AMB] Time Frame: 3 Days, Location: None Selected Patient Instructions/Handouts: A-fib (Atrial Fibrillation) (DC), Edmondson Catheter Placement and Care (DC) Activity/Diet/Wound Care/Special Instructions: Complete course of antibiotics as prior recommended by urology Continue with edmondson catheter and keep same follow up appointment outpatient F/U with cardiology in 1 to 2 weeks in the office Continue oral anticoagulation eliquis 5 mg Twice a day and monitor for coffee- ground emesis and blood tinged urine Repeat labs in 2 to 3 days Discharge Disposition: HOME SELF-CARE
[2023-07-20] MEDS ORDERED: carvediloL 6.25 MG TAB PO SCH (17:30)
--- NOTE | 2023-07-24 16:09 | CDI ---
Documentation Clarification Form Date: 07/24/2023 From: Cristina Hinds Admit Date: 07/18/2023 09:11:00 AM Patient Name: Pablo Gipson Visit Number: [id number] Discharge Date: 07/20/2023 03:24:00 PM ATTENTION: The Clinical Documentation Specialists (CDI) and [facility] Coding Staff appreciate your assistance in clarifying documentation. Please respond to the clarification below the line at the bottom and electronically sign. The CDI & [facility] Coding staff will review the response and follow-up if needed. Please note: Queries are made part of the Legal Health Record. If you have any questions, please contact the author of this message via ITS. Dr. Jonh Mello Your patient has leukocytosis and tachycardia. Based on this information and the findings below, is there an additional diagnosis that is clinically appropriate for this patient? History/Risk Factors: 67yo who underwent a robotic prostatectomy 2 days prior to admission for prostate cancer presented with a post-op ileus, abdominal pain, nausea and vomiting. Clinical Indicators: ER noted leukocytosis. H&P noted coffee-ground emesis, abd pain, postoperative ileus and arrhythmia. Cardio consult noted a new onset atrial fibrillation and tachycardia. Labs 07/18: WBC 16.5, Neut 13.9, LA 1.4 VS 07/18 @ 0700: HR 110, RR 18, 143/93, SaO2 97% on RA Treatment: IV fluid, carvedilol po, Protonix IV Is there an additional diagnosis that is clinically appropriate for this patient? [ x ] SIRS, due to post-op ileus without acute organ dysfunction [ ] SIRS, due to post-op ileus, with acute organ dysfunction (please specify) [ ] Other, please specify [ ] Unable to determine MTDD
== END 2023-07-20 15:24 | disposition home or self-care (01) | DRG 394 ==
LOC: EC 05:30 → 3SCARD 09:11
PROVIDERS: ADMIT Hospitalist; ATTEND Hospitalist
DX: K91.89 Other postprocedural complications and disorders of digestive system (principal); K56.7 Ileus, unspecified; K92.0 Hematemesis; T79.7XXA Traumatic subcutaneous emphysema, initial encounter; R65.10 Systemic inflammatory response syndrome (SIRS) of non-infectious origin without acute organ dysfunction; Y83.6 Removal of other organ (partial) (total) as the cause of abnormal reaction of the patient, or of later complication, without mention of misadventure at the time of the procedure; E78.5 Hyperlipidemia, unspecified; F17.210 Nicotine dependence, cigarettes, uncomplicated; M19.90 Unspecified osteoarthritis, unspecified site; C61 Malignant neoplasm of prostate; I10 Essential (primary) hypertension; I25.10 Atherosclerotic heart disease of native coronary artery without angina pectoris; I25.2 Old myocardial infarction; I48.0 Paroxysmal atrial fibrillation; I71.43 Infrarenal abdominal aortic aneurysm, without rupture; Z79.82 Long term (current) use of aspirin; Z79.899 Other long term (current) drug therapy; Z90.79 Acquired absence of other genital organ(s)
CPT/HCPCS: 36415; 71046; 71260; 74177; 80053; 83605; 84484; 85025; 85027; 85610; 85730; 93005; 93306; 94760; 96374; 96375; 99285